=== PATIENT | female | born 1940 | race Caucasian/White ===

== ENCOUNTER 2018-11-06 17:22 | Inpatient (IN) | payer MEDICARE, OTHER ==
[2018-11-06 20:00] LABS: ABS Eosinophils 0.3 10^3/ul (0-0.6); ABS Lymphocytes 2.1 10^3/ul (1.0-4.8); ABS Monocytes 0.4 10^3/ul (0-0.8); ABS Neutrophils 3.6 10^3/ul (1.5-7.7); Eosinophil % 5.4 %; Hematocrit 39 % (35-47); Hemoglobin 12.5 g/dL (12.0-16.0); Lymphocyte % 33.2 %; Mean Corpuscular HGB Conc 32 g/dL (31-36); Mean Corpuscular Hemoglobin 29 pg (27-31); Mean Corpuscular Volume 92 fL (80-97); Mean Platelet Volume 8.3 fL (7.4-10.4); Platelet Count 256 10^3/uL (150-450); Red Cell Distribution Width 15 % (10-15); White Blood Count 6.4 10^3/uL (3.5-10.8)
[2018-11-06 20:08] LABS: INR 1.18 (0.82-1.09)
[2018-11-06] MEDS ORDERED: Morphine 4 MG/ML VIAL (1 ml) 4 MG/ML VIAL IV ONE (20:08)
[2018-11-06 20:09] LABS: Activated Partial Thrombo Time 41.1 seconds (26.0-38.0)
--- NOTE | 2018-11-06 20:10 | ED ---
Back Pain - HPI Summary HPI Summary: he pt is a 78 yr old female was transferred from the [place] ED to [facility] by ambulance accompanied by daughter Susan and son-in-law with chief complaint of lower back pain s/p falling at 0230 on 11/03/2018. She was seen by Nba Steele NP at [facility], and he consulted Dr. Gipson after a CT was taken revealing an L2 fracture. Dr. Gipson recommended transfer to the [facility]. The pt fell while walking her dog outdoors at 0230 on 11/03/18 and has experienced lower back pain since then, which she rates 9/10 in severity. Pt has been using a cane while limping and decided tonight to go to [place] ED for evaluation. Pt has been using hydrocodone that she takes chronically for leg and back pain without relief. Pt states it was thought she might have a pinched nerve causing her back pain, but this was never diagnosed. The pain after falling is much worse that her usual back pain. 4 mg of morphine was administered in the ambulance to alleviate some of the pts pain, but she is currently feeling lower back pain and expresses a desire for medication to alleviate it. Pt also had a brain CT at [facility] which is reported to be negative. Pt denies DUNCAN, chest pain and abdominal pain. She has pain in her bilateral ribs, and her knees. She denies any CP or abd pain. The pt takes hydrocodone, Eliquis. She has Hx of COPD and uses 3 L of O2 when she sleeps at night, HTN, coronary stent, and a brain aneurysm coil. She did not have a stroke or bleed prior to the aneurysm coil. Her PCP is Dr. Cassidy Art. Pt is allergic to cephalexin and tetanus. Pt has redness of her left lower extremity, but daughter states this is chronic. Vital signs while in room: HR 70 bpm, BP 102/68, O2 94%. Home Medications Medication Instructions Recorded Confirmed Type Apixaban [Eliquis] 5 mg PO BID 11/06/18 11/06/18 History Buspirone HCl 10 mg PO BID 11/06/18 11/06/18 History Escitalopram Oxalate [Lexapro 10 10 mg PO DAILY 11/06/18 11/06/18 History mg] Fluticasone-Salmeterol 250-50* 1 puff INH DAILY 11/06/18 11/06/18 History [Advair Diskus 250-50*] Furosemide 20 mg PO DAILY 11/06/18 11/06/18 History Gabapentin 300 mg PO TID 11/06/18 11/06/18 History Hydrocodone/Acetaminophen 1 tab PO Q6H PRN 11/06/18 11/06/18 History [Hydrocodone/Acetaminophen 5-325 mg] Losartan Potassium [Cozaar] 25 mg PO DAILY 11/06/18 11/06/18 History Metoprolol Succinate XL TAB* 25 mg PO DAILY 11/06/18 11/06/18 History [Toprol XL TAB*] Multivit with Calcium,Iron,Min 1 each PO DAILY 11/06/18 11/06/18 History [Multiple Vitamins For Women] Pravastatin Sodium 40 mg PO DAILY 11/06/18 11/06/18 History Ropinirole HCl [Requip Xl] 2 mg pe PO TID 11/06/18 11/06/18 History buPROPion TAB* [Wellbutrin TAB*] 75 mg PO BID 11/06/18 11/06/18 History - History of Current Complaint Chief Complaint: EDFall Stated Complaint: LUMBAR FRACTURE PER EMS Time Seen by Provider: 11/06/18 17:47 Hx Obtained From: Patient, Family/Sports Journalist - Daughter and Son-in-law Onset/Duration: Lasting Days - starting 11/03 229, Still Present, Worse Since - today Onset/Duration: Started Days Ago - starting 11/03 229, Traumatic, Still Present , Worse Since - today Timing: Constant Back Pain Location: Is Discrete @ - Lower back Severity Initially: Severe Severity Currently: Severe Pain Intensity: 9 Pain Scale Used: 0-10 Numeric Alleviating Symptom(s): Other - Morphine. 4mg administered in the ambulance on the way to the [facility]. Associated Signs And Symptoms: Positive: Redness - In the lower left extremity, Flank Pain - bilaterally at ribs, Pain with Weight Bearing, Other - POSITIVE: bilateral knee pain; NEGATIVE: CP. Negative: Abdominal Pain - Allergies/Home Medications Allergies/Adverse Reactions: Allergies Allergy/AdvReac Type Severity Reaction Status Date / Time cephalexin [From Keflex] Allergy Hives Verified 11/06/18 17:30 Home Medications: Home Medications Apixaban [Eliquis] 5 mg PO BID 11/06/18 [History Confirmed 11/06/18] Buspirone HCl 10 mg PO BID 11/06/18 [History Confirmed 11/06/18] Escitalopram Oxalate [Lexapro 10 mg] 10 mg PO DAILY 11/06/18 [History Confirmed 11/06/18] Fluticasone-Salmeterol 250-50* [Advair Diskus 250-50*] 1 puff INH DAILY [History Confirmed 11/06/18] Furosemide 20 mg PO DAILY 11/06/18 [History Confirmed 11/06/18] Gabapentin 300 mg PO TID 11/06/18 [History Confirmed 11/06/18] Hydrocodone/Acetaminophen [Hydrocodone/Acetaminophen 5-325 mg] 1 tab PO Q6H PRN 11/06/18 [History Confirmed 11/06/18] Losartan Potassium [Cozaar] 25 mg PO DAILY 11/06/18 [History Confirmed 11/06/18] Metoprolol Succinate XL TAB* [Toprol XL TAB*] 25 mg PO DAILY 11/06/18 [History Confirmed 11/06/18] Multivit with Calcium,Iron,Min [Multiple Vitamins For Women] 1 each PO DAILY [History Confirmed 11/06/18] Pravastatin Sodium 40 mg PO DAILY 11/06/18 [History Confirmed 11/06/18] Ropinirole HCl [Requip Xl] 2 mg pe PO TID 11/06/18 [History Confirmed 11/06/18] buPROPion TAB* [Wellbutrin TAB*] 75 mg PO BID 11/06/18 [History Confirmed ] PMH/Surg Hx/FS Hx/Imm Hx Cardiovascular History: Reports: Hx Hypertension Respiratory History: Reports: Hx Chronic Obstructive Pulmonary Disease (COPD) - Surgical History Surgical History: None Surgery Procedure, Year, and Place: none Infectious Disease History: No Infectious Disease History: Denies: Traveled Outside the [place] in Last 30 Days - Family History Known Family History: Positive: Hypertension - Social History Alcohol Use: None Hx Substance Use: No Substance Use Type: Reports: None Hx Tobacco Use: No Smoking Status (MU): Former Smoker Review of Systems Negative: Chest Pain Negative: Abdominal Pain Positive: flank pain - bilaterally at ribs Positive: Other - low back pain, bilateral knee pain, pain with weight bearing All Other Systems Reviewed And Are Negative: Yes Physical Exam - Summary Physical Exam Summary: Appearance: Ill-appearing, moderate pain distress, obese Skin: Warm, color reflects adequate perfusion, dry, redness in the lower left extremity, 2cm purple ecchymosis mid abdomen, no ecchymoses anywhere else. Head: Normal Head/Face inspection, atraumatic, no cephalohematoma Eyes: Conjunctiva clear, PERRL, EOMI ENT: Normal inspection Neck: Supple, no nodes, no JVD, no spinal tenderness Respiratory: Lungs clear, normal breath sounds, no respiratory distress Cardio: RRR, No murmur, pulses normal, brisk capillary refill Abdomen: Soft, nontender, no masses Bowel sounds: Present Musculoskeletal: Tenderness in the right lower ribs, No crepitus, No ecchymosis , Tenderness lumbar spine, Strength Intact/ROM intact, no calf tenderness, no edema, Psychological: Normal Neuro: Alert O x 3, muscle tone normal, sensation intact, motor 5/5, no focal deficit Triage Information Reviewed: Yes Vital Signs On Initial Exam: Initial Vitals Temp Pulse Resp BP Pulse Ox 98.3 F 64 15 134/67 97 11/06/18 17:27 11/06/18 17:27 11/06/18 17:27 11/06/18 17:27 11/06/18 17:27 Vital Signs Reviewed: Yes Diagnostics - Vital Signs Vital Signs Temp Pulse Resp BP Pulse Ox 11/06/18 17:27 98.3 F 64 15 134/67 97 - Laboratory Lab Results: Lab Results 11/06/18 11/06/18 Range/Units 19:51 19:51 WBC 6.4 (3.5-10.8) 10^3/uL RBC 4.30 (3.70-4.87) 10^6 /uL Hgb 12.5 (12.0-16.0) g/dL Hct 39 (35-47) % MCV 92 (80-97) fL MCH 29 (27-31) pg MCHC 32 (31-36) g/dL RDW 15 (10-15) % Plt Count 256 (150-450) 10^3/uL MPV 8.3 (7.4-10.4) fL Neut % (Auto) 55.1 % Lymph % (Auto) 33.2 % [place] % (Auto) 5.7 % Eos % (Auto) 5.4 % Baso % (Auto) 0.6 % Absolute Neuts (auto) 3.6 (1.5-7.7) 10^3/ul Absolute Lymphs (auto) 2.1 (1.0-4.8) 10^3/ul Absolute Monos (auto) 0.4 (0-0.8) 10^3/ul Absolute Eos (auto) 0.3 (0-0.6) 10^3/ul Absolute Basos (auto) 0.0 (0-0.2) 10^3/ul Absolute Nucleated RBC 0.0 10^3/ul Nucleated RBC % 0.0 Blood Type Pending Antibody Screen Pending Result Diagrams: 11/06/18 19:51 11/06/18 19:51 Lab Statement: Any lab studies that have been ordered have been reviewed, and results considered in the medical decision making process. - Radiology CXR Radiology Interpretation Completed By: Radiologist Summary of Radiographic Findings: No acute disease. EKG physician has reviewed this report. - EKG 1936 Cardiac Rate: NL - 67 bpm EKG Rhythm: Sinus Rhythm ST Segment: Normal Summary of EKG Findings: An EKG at 1937 reveals nml AV/IV CT, nml QTc, and nml axis. No acute changes. ED MD has reviewed and interpreted this EKG. Re-Evaluation - Re-Evaluation First Eval Re-Evaluation Time: 21:40 Comment: I spoke with the patient concerning admission. She agrees with this plan. Back Pain Course/Dx - Course Course Of Treatment: 78yo F hx chronic low back pain on hydrocodone, hx cardiac stent, HTN, brain aneurysm coil presents with acute superior endplate fracture of L2 after a mechanical fall on 11/03/18 at her home. Pt was limping at home with the pain until she presented today. Pt's initial evaluation and CT showing the L2 fracture were done at [facility] and pt was transferred to [facility] ED after Dr. Gipson reviewed the films and recommended transfer for definitive care. Pt is on Eliquis and also had a CT brain which is reported to be negative , done at [facility]. Pt's neurologic exam is normal. CXR preliminary reading is NAD, and does not show any rib fractures. Pt's EKG is normal. Her initial troponin is zero. Her lab abnormalities include: INR 1.18, APTT 41.1, Creatinine 1.08, Glucose 107. Care was discussed with Dr. Gipson by phone who recommends bedrest overnight, then a brace, and upright films and an MRI tomorrow. Dr. Gipson will consult, and hospitalists will admit medically with acceptance by Dr. Maxwell for admission at 2130. The pt and family are agreeable with this plan. - Diagnoses Differential Diagnosis/HQI/PQRI: Positive: Fracture, Herniated Disc, Strain Provider Diagnoses: Fracture of L2 vertebra - Provider Notifications Discussed Care Of Patient With: Chanda Gipson - neurosurgery Time Discussed With Above Provider: 15:50 Instructed by Provider To: Other - I spoke with Dr. Gipson concerning the patient's case. He will consult for the patient in the ED. He suggests bedrest overnight, then a brace, and upright films and an MRI tomorrow. I spoke with Dr. Maxwell, hospitalist, at 2130, and she accepts patient for admission. Discharge - Sign-Out/Discharge Documenting (check all that apply): Patient Departure - Patient is accepted for admission by Dr. Maxwell. Patient Received Moderate/Deep Sedation with Procedure: No - Discharge Plan Condition: Stable Disposition: ADMITTED TO [facility] - Billing Disposition and Condition Condition: STABLE Disposition: Admitted to [facility] - Attestation Statements Document Initiated by Scribe: Yes Documenting Scribe: Gladis Esquivel Provider For Whom Scribe is Documenting (Include Credential): Dr. Ct Nunez MD Scribe Attestation: Gladis Weaver, scribed for Dr. Ct Nunez MD on 11/07/18 at 0212. Status of Scribe Document: Viewed
[2018-11-06 20:18] LABS: Albumin 4.2 g/dL (3.2-5.2); Albumin/Globulin Ratio 1.3 (1-3); BUN/Creatinine Ratio 14.8 (8-20); Calcium 9.6 mg/dL (8.6-10.3); EGFR African American 59.5 (>60); EGFR Non-African American 49.2 (>60); Globulin 3.2 g/dL (2-4); Potassium 4.4 mmol/L (3.5-5.0); Total Bilirubin 0.4 mg/dL (0.2-1.0); Total Protein 7.4 g/dL (6.4-8.9)
[2018-11-06] MEDS ORDERED: Magnesium Hydroxide LIQ* 30 ML UDC PO PRN (23:07)
[2018-11-06] MEDS ORDERED: Senna TAB PO PRN (23:07)
[2018-11-06] MEDS ORDERED: Albuterol 2.5 MG/3 ML NEB.SOL* (0.083%) INH PRN (23:08)
[2018-11-07] MEDS: oxyCODONE TAB* 5 MG TAB PO PRN ×3 (01:04→19:33)
[2018-11-07] MEDS: ROPINIROLE HCL 2 MG PO SCH ×2 (02:31→04:06)
--- NOTE | 2018-11-07 04:23 | HP ---
CC: Dr. Cassidy Art * HISTORY AND PHYSICAL: DATE OF ADMISSION: 11/06/18 PRIMARY CARE PHYSICIAN: Dr. Cassidy Art. HEALTH CARE PROXY: Amber, her daughter. Phone number [phone]. CODE STATUS: DNR/DNI. CHIEF COMPLAINT: Transfer from [place] for L2 fracture. HISTORY OF PRESENT ILLNESS: Ms. Manzanares is a 78-year-old woman with a past medical history of COPD, on home O2; brain aneurysm, status post coiling in 2018 , now on anticoagulation; coronary artery disease, status post stent; diabetes, now controlled with diet; chronic sciatica; lower extremity neuropathy; lower extremity edema, who was presenting with 3 days of back pain after a fall. She reports that at 2:30 in the morning approximately 3 days prior to presentation, she got up to let her dog outside and she experienced a fall. Her grandson was around at that time and alerted his parents. Because the patient was able to walk after this fall and did not see bruises on herself, she did not immediately seek medical care. The lower back pain has been severe and not progressing over the last few days. However, on day of presentation to [facility], she heard a loud crack in her back and the pain was even more severe, so she presented to the emergency room. For the last several days, she denies new weakness or numbness in her legs. She denies constipation or new bowel or bladder incontinence. She reports neuropathic pain shooting down both of her legs which is chronic over the last several years. At [facility], a CT scan showed a fracture of L2 vertebra, and she was transferred to [facility] for further care. Dr. Gipson was consulted who recommended an MRI of her L-Spine with a CT of her cervical spine and x-ray of her thoracic spine, and to remain on bedrest until able to obtain a TLSO brace. A complete 10-point review of systems was performed with pertinent positives listed in the HPI. PAST MEDICAL HISTORY: 1. COPD, on nighttime oxygen supplement. 2. Chronic sciatica and lower extremity neuropathy. 3. Brain aneurysm 2018, status post coil, now on chronic anticoagulation. 4. Coronary artery disease, status post stenting. 5. Diabetes mellitus type 2, now controlled with diet. 6. Lower extremity edema, denies history of heart failure. 7. Depression and anxiety. 8. Hypertension. MEDICATIONS: Home medications: 1. Apixaban 5 mg twice a day. 2. Furosemide 20 mg daily. 3. Metoprolol 25 mg daily. 4. Losartan 25 mg daily. 5. Bupropion 75 mg twice a day. 6. Buspirone 10 mg twice a day. 7. Escitalopram 10 mg daily. 8. Ropinirole 2 mg 3 times a day as needed for restless leg. 9. Advair 1 puff daily. 10. Pravastatin 40 mg daily. 11. Hydrocodone/acetaminophen 5/325 every 6 hours as needed for pain. 12. Gabapentin 300 mg 3 times a day. ALLERGIES: CEPHALEXIN caused hives. FAMILY HISTORY: The patient's mother and 3 brothers had Alzheimer disease. One of her brothers had kidney disease. SOCIAL HISTORY: The patient lives with her daughter in [place] in the [place] and lives in [place] with her dog in the [place]. 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 She smoked approximately 1 to 2 packs per day for 30 years but quit at age 51. Denies history of current use of alcohol or other drugs. Her health care proxy is her daughter Amber. PHYSICAL EXAMINATION GENERAL: She is a comfortable appearing woman, in no acute distress. Alert and interactive, responds to questions appropriately. VITAL SIGNS: Afebrile, blood pressure 115/66, heart rate 68, respiratory rate 19, oxygen saturation 92% on room air. HEENT: With moist mucous membranes. OP clear. NECK: No JVD. LUNGS: Clear to auscultation bilaterally. HEART: Regular rate and rhythm. No murmurs, gallops, or rubs. ABDOMEN: Soft, nontender, nondistended. BACK: Without ecchymoses, tenderness to palpation over L-Spine. EXTREMITIES: Lower extremities with left leg warmer than right leg, with left erickson with circumferential mild erythema. The patient reports this is chronic. DP pulses 2+ on the left and 1+ on the right. No lower extremity edema. NEUROLOGIC: A and O x3. CN II through XII intact. Hip flexion approximately 4 /5 bilaterally. Ankle flexion and extension 5/5 bilaterally. The patient reports decreased sensation throughout left lower extremity when compared to right which is at her baseline. LABORATORY DATA: CBC unremarkable. INR 1.18. Creatinine 1.08 without known baseline. Hemoglobin A1c 6.1. LFTs unremarkable. Imaging studies from [place] are pending. EKG: Normal sinus rhythm at 67. ASSESSMENT AND PLAN: Ms. Manzanares is a 78-year-old woman with hypertension; chronic obstructive pulmonary disease, on home O2; chronic sciatica and lower extremity neuropathy; brain aneurysm, status post coiling, on chronic anticoagulation; coronary artery disease with stents; depression and anxiety, who is presenting several days after a fall at home with imaging at outside hospital concerning for L2 fracture. 1. Lumbar vertebra fracture. The patient is to remain on bedrest pending lumbar spine MRI. Per neurosurgery request, she will also receive a CT of her cervical spine and x-ray of her thoracic spine. She should have a TLSO brace obtained tomorrow and afterwards should undergo upright films while wearing the brace, and she will need physical therapy evaluation. She can have Tylenol for mild pain and oxycodone 5 mg every 6 hours as needed for [id number] pain. Bowel regimen has also been ordered. 2. Brain aneurysm, status post coil. The patient reports she now chronically takes Apixaban 5 mg twice a day. Denies history of clot. Will continue this medication. 3. Chronic obstructive pulmonary disease. Continue home Dulera inhaler daily with albuterol as needed for shortness of breath. She will be on oxygen as needed to maintain SaO2 88% to 92%. 4. Depression and anxiety. Continue home bupropion 75 mg twice a day, buspirone 10 mg twice a day, and escitalopram 10 mg daily. 5. Lower extremity edema. Continue home furosemide 20 mg daily. 6. Chronic lower extremity neuropathic pain. Continue home gabapentin 300 mg 3 times a day. Otherwise, pain control as above for lumbar fracture. 7. Coronary artery disease. Continue home atorvastatin 10 mg daily. Continue metoprolol 25 mg daily. 8. Restless leg syndrome. Continue Ropinirole. 9. Hypertension. Continue home losartan 25 mg daily. 10. DVT prophylaxis: The patient is on therapeutic anticoagulation with Apixaban. 11. Diet: We will keep the patient n.p.o. for imaging, but should have carb- controlled diet when able to eat. 12. Code status: The patient wishes to be DNR. TIME SPENT: Approximately 60 minutes was spent on the admission of this patient , more than half of which was spent at the bedside for interview and exam. [id number]/[facility] #: [id number] [place]
[2018-11-07] MEDS: Metoprolol Succinate XL TAB* 25 MG PO SCH (07:52)
[2018-11-07] MEDS: Escitalopram * 10 MG TAB PO SCH (07:53)
[2018-11-07] MEDS: Gabapentin CAP(*) 300 MG PO SCH ×3 (07:53→21:27)
[2018-11-07] MEDS: Furosemide TAB* 20 MG PO SCH (07:53)
[2018-11-07] MEDS: busPIRone TAB* 10 MG PO SCH ×2 (07:53→21:28)
[2018-11-07] MEDS: buPROPion TAB* 75 MG PO SCH ×2 (07:53→21:28)
[2018-11-07] MEDS: Atorvastatin* 10 MG TAB PO SCH (07:53)
[2018-11-07] MEDS: Apixaban* 5 MG TAB PO SCH ×2 (07:53→21:28)
[2018-11-07] MEDS: Losartan TAB* 25 MG PO SCH (07:53)
[2018-11-07] MEDS: MULTIPLE VITAMINS FOR WOMEN PO SCH (07:54)
[2018-11-07] MEDS: rOPINIRole TAB* 1 MG PO SCH ×3 (07:54→21:29)
[2018-11-07] MEDS: Mometasone/Formoter 200/5 MDI INH SCH (08:37)
--- NOTE | 2018-11-07 12:18 | CONS ---
CONSULTATION REPORT: DATE OF CONSULT: 11/07/18 HISTORY OF PRESENT ILLNESS: Ms. Manzanares is a 78-year-old female with complaint of acute low back pain x4 days. The patient was walking her dog and fell, and landed on her back, and has had increased pain since. The patient also reports that yesterday she was at home in her bed and tried to turn over to her side and felt a popping sensation with increased pain, which prompted her to come into the ED for evaluation. The patient was initially seen at [facility] and was diagnosed with an L2 compression fracture at that time. Dr. Gipson of the neurosurgery team was consulted and recommended the patient be followed up here at [facility] for evaluation. She has since then completed a cervical spine and thoracic spine series, which shows no acute injury. Currently, the patient complains of low back pain with bilateral radicular pain. The radicular pain is a chronic issue and has been unchanged since her fall. Presently, she denies any issues with loss of control of bladder or bowel. Pain is increased with standing and walking. PAST MEDICAL HISTORY: 1. High cholesterol. 2. Hypertension. MEDICATIONS: 1. Pravastatin sodium 40 mg p.o. daily. 2. Multivitamin p.o. daily. 3. Advair Diskus 1 puff daily. 4. ReQuip 2 mg p.o. t.i.d. 5. Lexapro 10 mg daily. 6. Buspirone 10 mg p.o. daily. 7. Wellbutrin 75 mg p.o. b.i.d. 8. Cozaar 25 mg daily. 9. Eliquis 5 mg p.o. b.i.d. 10. Metoprolol 25 mg p.o. daily. 11. Gabapentin 30 mg p.o. t.i.d. 12. Furosemide 20 mg p.o. daily. 13. Hydrocodone 5/325 one tab p.o. q.6 p.r.n. daily. SOCIAL HISTORY: Denies tobacco use, denies alcohol, denies drug use. PHYSICAL EXAMINATION: Vital Signs: Temperature is 97.9, pulse rate 66, respiration 16, O2 saturation 95% on room air, blood pressure 122/61. The patient is sitting up in bed, comfortable with the bed elevated. Mood is pleasant, no acute distress noted. Neuro: The patient's GCS is 15. Alert and oriented x3. Cranial nerves II through XII grossly intact. Negative pronator drift. Upper extremity motor strength is 5/5+ bilaterally throughout. Lower extremity motor strength 5/5+ throughout. Sensation is intact throughout. Negative Babinski's. Negative clonus. ASSESSMENT: A 78-year-old female with acute low back pain, status post mechanical fall from walking dog x4 days, has possible L2 compression fracture, was diagnosed at [facility] and transferred over to [facility] as a recommendation by Dr. Gipson from neurosurgery. The patient is neurologically intact with no focal deficit. Has completed CTs of the cervical and thoracic spine. PLAN/RECOMMENDATIONS: Need to get an MRI of the lumbar spine. Get the patient fitted for TLSO brace, have the brace at bedside. I spoke with the patient; she is a little apprehensive about being braced so that it may be a little bit more constrictive. We spoke and discussed her medical history. She is on anticoagulants and has significant medical history which she was unable to give at bedside. Just looking through her chart, I have been able to see that she is on anticoagulants. I explained to the patient that surgery might be an option, but may require several medical clearances for her to do that and that conservative therapy would include wearing a brace for possibly 10 to 12 weeks with serial radial films to make sure that the fracture stays stable and she does not experience any kyphosis. At this time, we will follow with the patient after she completes her MRI study of her lumbar spine and continue to talk about options. Hopefully, her daughter will be at the bedside so we can possibly weigh in on the situation. I will also discuss this case with Dr. Gipson. [id number]/[facility] #: [id number] [place]
--- NOTE | 2018-11-07 16:02 | PN ---
Subjective Date of Service: 11/07/18 Interval History: Patient seen and examined. Daughter at bedside. Patient states back pain is severe, so she is trying not to move. Denies any fever or chills, no urinary complaints, no SOB or chest pains. No focal weakness reported. Objective Active Medications: Acetaminophen (Tylenol Tab*) 975 mg PO Q8H PRN PRN Reason: fever or mild pain Albuterol (Ventolin 2.5 Mg/3 Ml Neb.Ana*) 2.5 mg INH Q6H PRN PRN Reason: SOB/WHEEZING Apixaban (Eliquis*) 5 mg PO BID [facility] Last Admin: 11/07/18 07:53 Dose: 5 mg Atorvastatin Calcium (Lipitor*) 10 mg PO DAILY [facility] Last Admin: 11/07/18 07:53 Dose: 10 mg Bupropion HCl (Wellbutrin Tab*) 75 mg PO BID [facility] Last Admin: 11/07/18 07:53 Dose: 75 mg Buspirone HCl (Buspar Tab*) 10 mg PO BID [facility] Last Admin: 11/07/18 07:53 Dose: 10 mg Escitalopram Oxalate (Lexapro *) 10 mg PO DAILY [facility] Last Admin: 11/07/18 07:53 Dose: 10 mg Furosemide (Lasix Tab*) 20 mg PO DAILY [facility] Last Admin: 11/07/18 07:53 Dose: 20 mg Gabapentin (Neurontin Cap(*)) 300 mg PO TID [facility] Last Admin: 11/07/18 13:13 Dose: 300 mg Losartan Potassium (Cozaar Tab*) 25 mg PO DAILY [facility] Last Admin: 11/07/18 07:53 Dose: 25 mg Magnesium Hydroxide (Milk Of Magnesia Liq*) 30 ml PO Q6H PRN PRN Reason: CONSTIPATION Metoprolol Succinate (Toprol Xl Tab*) 25 mg PO DAILY [facility] Last Admin: 11/07/18 07:52 Dose: 25 mg Mometasone Furoate/Formoterol Fumar (Dulera 200/5 Mdi*) 2 puff INH DAILY [facility] Last Admin: 11/07/18 08:37 Dose: 2 puff [Multiple Vitamins (For Women]) 1 each PO DAILY [facility] Last Admin: 11/07/18 07:54 Dose: Not Given Oxycodone HCl (Roxycodone Tab*) 5 mg PO Q6H PRN PRN Reason: moderate or severe pain Last Admin: 11/07/18 13:15 Dose: 5 mg Ropinirole HCl (Requip Tab*) 2 mg PO TID [facility] Last Admin: 11/07/18 13:13 Dose: 2 mg Senna (Senokot Tab*) 1 tab PO BEDTIME PRN PRN Reason: if no BM during day Vital Signs - 8 hr 11/07/18 11/07/18 11/07/18 07:53 08:00 08:38 Temperature Pulse Rate 81 Respiratory 16 16 18 Rate Blood Pressure (mmHg) O2 Sat by Pulse 97 Oximetry 11/07/18 11/07/18 11/07/18 09:33 12:24 13:13 Temperature 98.1 F Pulse Rate 74 Respiratory 16 18 18 Rate Blood Pressure 143/60 (mmHg) O2 Sat by Pulse 95 Oximetry 11/07/18 11/07/18 11/07/18 13:15 14:50 14:51 Temperature Pulse Rate Respiratory 16 16 16 Rate Blood Pressure (mmHg) O2 Sat by Pulse Oximetry Oxygen Devices in Use Now: None Appearance: alert, NAD Eyes: No Scleral Icterus, PERRLA Ears/Nose/Mouth/Throat: NL Teeth, Lips, Gums Neck: NL Appearance and Movements; NL JVP, Trachea Midline Respiratory: Symmetrical Chest Expansion and Respiratory Effort, Clear to Auscultation Cardiovascular: NL Sounds; No Murmurs; No JVD, RRR, No Edema Abdominal: NL Sounds; No Tenderness; No Distention Extremities: No Edema, No Clubbing, Cyanosis, - - tender lumbar region Skin: No Rash or Ulcers Neurological: Alert and Oriented x 3, NL Sensation Nutrition: Taking PO's Result Diagrams: 11/06/18 19:51 11/06/18 19:51 Additional Lab and Data: Lab Results 11/06/18 11/06/18 Range/Units 19:51 19:51 WBC 6.4 (3.5-10.8) 10^3/uL RBC 4.30 (3.70-4.87) 10^6 /uL Hgb 12.5 (12.0-16.0) g/dL Hct 39 (35-47) % MCV 92 (80-97) fL MCH 29 (27-31) pg MCHC 32 (31-36) g/dL RDW 15 (10-15) % Plt Count 256 (150-450) 10^3/uL MPV 8.3 (7.4-10.4) fL Neut % (Auto) 55.1 % Lymph % (Auto) 33.2 % [place] % (Auto) 5.7 % Eos % (Auto) 5.4 % Baso % (Auto) 0.6 % Absolute Neuts (auto) 3.6 (1.5-7.7) 10^3/ul Absolute Lymphs (auto) 2.1 (1.0-4.8) 10^3/ul Absolute Monos (auto) 0.4 (0-0.8) 10^3/ul Absolute Eos (auto) 0.3 (0-0.6) 10^3/ul Absolute Basos (auto) 0.0 (0-0.2) 10^3/ul Absolute Nucleated RBC 0.0 10^3/ul Nucleated RBC % 0.0 Blood Type Pending Antibody Screen Pending Assess/Plan/Problems-Billing Assessment: This is a 78 year old female with hx of degenerative spine disease and frequent falls that presents to ED with fall and back pain. - Patient Problems (1) Intractable low back pain Code(s): M54.5 - LOW BACK PAIN SNOMED Code(s): 63871343730636277 Comment: - CT with L2 fx, pending NS consult and MRI - Before MRI can be completed, records from [facility] regarding aneurysm coil have to be reviewed to see if it is MRI compatible - TLSO brace ordered - PT/OT, pain control (2) COPD (chronic obstructive pulmonary disease) Code(s): J44.9 - CHRONIC OBSTRUCTIVE PULMONARY DISEASE, UNSPECIFIED SNOMED Code(s): 79560793 Comment: - Not in exacerbation, continue dulera (3) Brain aneurysm Comment: - With coil procedure, stable, pending records for MRI compatibility - conitnue apixiban (4) Diabetes Code(s): E11.9 - TYPE 2 DIABETES MELLITUS WITHOUT COMPLICATIONS SNOMED Code(s) : 55956859 Comment: - A1c 6.1, stable, no need for coverage (5) Depression Code(s): F32.9 - MAJOR DEPRESSIVE DISORDER, SINGLE EPISODE, UNSPECIFIED SNOMED Code(s): 72953228 Comment: - continue home antidpressents (6) Edema Code(s): R60.9 - EDEMA, UNSPECIFIED SNOMED Code(s): 528060641 Comment: - Continue daily lasix (7) DVT prophylaxis Code(s): Z29.9 - ENCOUNTER FOR PROPHYLACTIC MEASURES, UNSPECIFIED SNOMED Code( s): 869343327 Comment: - on apixiban (8) Full code status Code(s): Z78.9 - OTHER SPECIFIED HEALTH STATUS SNOMED Code(s): 106612120 Status and Disposition: Inpatient, will likely require STR
--- NOTE | 2018-11-07 23:25 | CONS ---
CONSULTATION REPORT: DATE OF OPERATION: 11/06/18 DATE OF CONSULTATION: 11/07/18 HISTORY OF PRESENT ILLNESS: The patient is a very pleasant 78-year-old female with history of COPD, on home oxygen; brain aneurysm, status post coiling in 2018 in [place], who as you know has been on anticoagulation; coronary artery disease, status post stent placement; diabetes; chronic sciatica; lower extremity neuropathy; lower extremity edema, who presented 3 days after a fall in [facility]. At that time, she was diagnosed with L1 superior endplate fracture and was transferred to [facility]. The patient had a CT scan of the brain that did not reveal any evidence of acute injury. Requested to see the patient by emergency room team because of the CT scan findings: The patient denies loss of consciousness and she remembers how the episodes of fall happened. She did not lose her consciousness. She denies any neck pain, but she does have a fair amount of back pain. She denies any weakness, numbness, or tingling of her extremities, and she reports that she has difficulty with her ambulation because of the pain. The patient denies any urinary or GI incontinence, but she does have a baseline urinary stress incontinence. Her ___ __ sensation is intact. The patient was currently admitted by the hospitalist team and was scheduled for an MRI of her lumbar spine and was fitted with a TLSO brace. PAST MEDICAL HISTORY: 1. COPD. 2. Sciatica. 3. Lower extremity neuropathy. 4. Brain aneurysm. 5. Status post coiling, on chronic anticoagulation. 6. Coronary artery disease. 7. Diabetes. 8. Lower extremity edema. 9. Depression. 10. Anxiety. 11. Hypertension. MEDICATIONS: The patient was on: 1. Apixaban. 2. Furosemide. 3. Metoprolol. 4. Losartan. 5. Bupropion. 6. Buspirone. 7. Escitalopram. 8. Ropinirole. 9. Advair. 10. Pravastatin. 11. Hydrocodone/acetaminophen. 12. Gabapentin. ALLERGIES: CEPHALEXIN. FAMILY HISTORY: Alzheimer's disease. SOCIAL HISTORY: Tobacco negative. Former smoker. Alcohol negative. Recreational drug use negative. The patient is a . She is retired. She lives in the [place] in [place] with her daughter and at times [place] in the [place]. PHYSICAL EXAMINATION: The patient is not in acute distress. She is awake, alert, and oriented x3. Her pupils are equal and reactive. Cranial nerves II through XII are grossly intact. Motor 4-5/5 in all extremities. Sensory grossly intact to light touch. Deep tendon reflexes +1 bilaterally. No clonus. No Babinski. Ewlls's negative. Straight leg test negative in the supine position. The patient has no tenderness to palpation of the thoracic or lumbar spine. She has free range of motion of the cervical spine. DIAGNOSTIC STUDIES/LAB DATA: The patient had a CT scan of the lumbar spine on 11/06/18 revealing a superior endplate fracture of L1 with severe degenerative disk disease, no evidence of posterior ligamentous complex injury. Good alignment of the lumbar spine. No retropulsion. The patient had a CT scan of the cervical spine that did not reveal any acute cervical spine injury such as fractures or subluxation. There are postoperative changes from anterior cervical discectomy and fusion at C5-6 and C6-7. The patient had a CT scan of the thoracic spine that reveals again superior endplate fracture of L1 with chronic-appearing mild wedge deformity of T4 which is described several in my review. There is no retropulsion. There is no canal compromise. ASSESSMENT: The patient is a very pleasant 78-year-old female with history of hypertension; chronic obstructive pulmonary disease, on home oxygen; chronic sciatica; lower extremity neuropathy; brain aneurysm, status post coiling, on chronic anticoagulation; coronary artery disease with stent; depression; anxiety ; who had suffered a fall several days ago with CT scan findings consistent with L1 superior endplate fracture. PLAN: The patient at this point has done extremely well. She has been fitted with a brace but she has not been able to ambulate yet. MRI of the lumbar spine is pending as the findings may represent chronic fracture. The patient's documents from [facility] in [place] are pending. In order to confirm that coiling is MRI compatible, we will recommend upright x-ray or standing x- ray with a TLSO brace pend the treatment conservatively. If the alignment is maintained in the upright position then, the patient can follow up in our office in approximately 2 weeks with a new x-ray of the thoracolumbar spine. Thank you for allowing us to participate in the care of this patient. Please do not hesitate to contact our office in case you have any further questions or concerns regarding the care of this patient. The patient should be wearing a TLSO brace when out of bed. [id number]/[facility] #: [id number] [facility]
[2018-11-08] MEDS: Atorvastatin* 10 MG TAB PO SCH (07:24)
[2018-11-08] MEDS: Escitalopram * 10 MG TAB PO SCH (07:24)
[2018-11-08] MEDS: rOPINIRole TAB* 1 MG PO SCH ×3 (07:24→20:56)
[2018-11-08] MEDS: buPROPion TAB* 75 MG PO SCH ×2 (07:24→20:55)
[2018-11-08] MEDS: busPIRone TAB* 10 MG PO SCH ×2 (07:24→20:55)
[2018-11-08] MEDS: Losartan TAB* 25 MG PO SCH (07:24)
[2018-11-08] MEDS: Furosemide TAB* 20 MG PO SCH (07:25)
[2018-11-08] MEDS: oxyCODONE TAB* 5 MG TAB PO PRN ×3 (07:26→16:25)
[2018-11-08] MEDS: Gabapentin CAP(*) 300 MG PO SCH ×3 (07:26→20:56)
[2018-11-08] MEDS: Apixaban* 5 MG TAB PO SCH ×2 (07:27→20:56)
[2018-11-08] MEDS: Metoprolol Succinate XL TAB* 25 MG PO SCH (07:29)
[2018-11-08] MEDS: MULTIPLE VITAMINS FOR WOMEN PO SCH (07:29)
[2018-11-08] MEDS: Mometasone/Formoter 200/5 MDI INH SCH (07:30)
[2018-11-08] MEDS: Cyclobenzaprine TAB* 10 MG PO PRN ×2 (09:56→20:55)
--- NOTE | 2018-11-08 17:26 | PN ---
Subjective Date of Service: 11/08/18 Interval History: Patient seen and examined. Increased pain today 01/03 with no relief from 5mg oxycodone. Daughter at bedside, Patient tearful and upset that she feels like she can't move, also upset about having to call nurses to help her urinate on bedpan. Denies chest pain, no SOB, no n/v. Objective Active Medications: Acetaminophen (Tylenol Tab*) 975 mg PO Q8H PRN PRN Reason: fever or mild pain Albuterol (Ventolin 2.5 Mg/3 Ml Neb.Ana*) 2.5 mg INH Q6H PRN PRN Reason: SOB/WHEEZING Apixaban (Eliquis*) 5 mg PO BID [facility] Last Admin: 11/08/18 07:27 Dose: 5 mg Atorvastatin Calcium (Lipitor*) 10 mg PO DAILY [facility] Last Admin: 11/08/18 07:24 Dose: 10 mg Bupropion HCl (Wellbutrin Tab*) 75 mg PO BID [facility] Last Admin: 11/08/18 07:24 Dose: 75 mg Buspirone HCl (Buspar Tab*) 10 mg PO BID [facility] Last Admin: 11/08/18 07:24 Dose: 10 mg Cyclobenzaprine HCl (Flexeril Tab*) 10 mg PO TID PRN PRN Reason: back spasm Last Admin: 11/08/18 09:56 Dose: 10 mg Escitalopram Oxalate (Lexapro *) 10 mg PO DAILY [facility] Last Admin: 11/08/18 07:24 Dose: 10 mg Furosemide (Lasix Tab*) 20 mg PO DAILY [facility] Last Admin: 11/08/18 07:25 Dose: 20 mg Gabapentin (Neurontin Cap(*)) 300 mg PO TID [facility] Last Admin: 11/08/18 14:06 Dose: 300 mg Losartan Potassium (Cozaar Tab*) 25 mg PO DAILY [facility] Last Admin: 11/08/18 07:24 Dose: 25 mg Magnesium Hydroxide (Milk Of Magnesia Liq*) 30 ml PO Q6H PRN PRN Reason: CONSTIPATION Metoprolol Succinate (Toprol Xl Tab*) 25 mg PO DAILY [facility] Last Admin: 11/08/18 07:29 Dose: 25 mg Mometasone Furoate/Formoterol Fumar (Dulera 200/5 Mdi*) 2 puff INH DAILY [facility] Last Admin: 11/08/18 07:30 Dose: Not Given [Multiple Vitamins (For Women]) 1 each PO DAILY [facility] Last Admin: 11/08/18 07:29 Dose: Not Given Oxycodone HCl (Roxycodone Tab*) 10 mg PO Q4H PRN PRN Reason: SEVERE PAIN Last Admin: 11/08/18 16:25 Dose: 10 mg Ropinirole HCl (Requip Tab*) 2 mg PO TID [facility] Last Admin: 11/08/18 14:05 Dose: 2 mg Senna (Senokot Tab*) 1 tab PO BEDTIME PRN PRN Reason: if no BM during day Vital Signs - 8 hr 11/08/18 11/08/18 11/08/18 09:55 09:56 09:59 Temperature Pulse Rate Respiratory 16 16 16 Rate Blood Pressure (mmHg) O2 Sat by Pulse Oximetry 11/08/18 11/08/18 11/08/18 10:02 11:15 12:05 Temperature 98.2 F Pulse Rate 65 Respiratory 16 16 16 Rate Blood Pressure 101/47 (mmHg) O2 Sat by Pulse 94 Oximetry 11/08/18 11/08/18 14:06 16:25 Temperature Pulse Rate Respiratory 16 18 Rate Blood Pressure (mmHg) O2 Sat by Pulse Oximetry Oxygen Devices in Use Now: Nasal Cannula Appearance: alert, tearful Eyes: No Scleral Icterus, PERRLA Ears/Nose/Mouth/Throat: NL Teeth, Lips, Gums, Mucous Membranes Moist Neck: NL Appearance and Movements; NL JVP, Trachea Midline Respiratory: Symmetrical Chest Expansion and Respiratory Effort, Clear to Auscultation Cardiovascular: NL Sounds; No Murmurs; No JVD, RRR Abdominal: NL Sounds; No Tenderness; No Distention Extremities: No Clubbing, Cyanosis - trace ankle edema Skin: No Rash or Ulcers Neurological: Alert and Oriented x 3, NL Sensation, NL Muscle Strength and Tone , - - pain over low back to palpation Nutrition: Taking PO's Result Diagrams: 11/06/18 19:51 11/06/18 19:51 Additional Lab and Data: Lab Results 11/06/18 11/06/18 Range/Units 19:51 19:51 WBC 6.4 (3.5-10.8) 10^3/uL RBC 4.30 (3.70-4.87) 10^6 /uL Hgb 12.5 (12.0-16.0) g/dL Hct 39 (35-47) % MCV 92 (80-97) fL MCH 29 (27-31) pg MCHC 32 (31-36) g/dL RDW 15 (10-15) % Plt Count 256 (150-450) 10^3/uL MPV 8.3 (7.4-10.4) fL Neut % (Auto) 55.1 % Lymph % (Auto) 33.2 % [place] % (Auto) 5.7 % Eos % (Auto) 5.4 % Baso % (Auto) 0.6 % Absolute Neuts (auto) 3.6 (1.5-7.7) 10^3/ul Absolute Lymphs (auto) 2.1 (1.0-4.8) 10^3/ul Absolute Monos (auto) 0.4 (0-0.8) 10^3/ul Absolute Eos (auto) 0.3 (0-0.6) 10^3/ul Absolute Basos (auto) 0.0 (0-0.2) 10^3/ul Absolute Nucleated RBC 0.0 10^3/ul Nucleated RBC % 0.0 Blood Type Pending Antibody Screen Pending Assess/Plan/Problems-Billing Assessment: This is a 78 year old female with hx of degenerative spine disease and frequent falls that presents to ED with fall and back pain. - Patient Problems (1) Intractable low back pain Code(s): M54.5 - LOW BACK PAIN SNOMED Code(s): 91432579106954058 Comment: - CT with L2 fx, NS following, pending MRI (aneurysm clip is compatible), upright xrays with brace tomorrow? Will confirm with neurosurgery - TLSO brace fitted - PT/OT, pain control, increased oxycodone, added flexeril (2) COPD (chronic obstructive pulmonary disease) Code(s): J44.9 - CHRONIC OBSTRUCTIVE PULMONARY DISEASE, UNSPECIFIED SNOMED Code(s): 20465852 Comment: - Not in exacerbation, continue dulera (3) Brain aneurysm Comment: - With coil procedure, stable - conitnue apixiban (4) Diabetes Code(s): E11.9 - TYPE 2 DIABETES MELLITUS WITHOUT COMPLICATIONS SNOMED Code(s) : 71699705 Comment: - A1c 6.1, stable, no need for coverage (5) Depression Code(s): F32.9 - MAJOR DEPRESSIVE DISORDER, SINGLE EPISODE, UNSPECIFIED SNOMED Code(s): 18180733 Comment: - continue home antidpressents (6) Edema Code(s): R60.9 - EDEMA, UNSPECIFIED SNOMED Code(s): 034416196 Comment: - Continue daily lasix (7) DVT prophylaxis Code(s): Z29.9 - ENCOUNTER FOR PROPHYLACTIC MEASURES, UNSPECIFIED SNOMED Code( s): 724317839 Comment: - on apixiban (8) Full code status Code(s): Z78.9 - OTHER SPECIFIED HEALTH STATUS SNOMED Code(s): 947529766 Status and Disposition: Inpatient, will likely require STR, appreciate recs from CM
--- NOTE | 2018-11-08 18:05 | PN ---
Progress Note - Progress Note Date of Service: 11/08/18 Note: Patient completed RI show acute L1 compression fracture through the superior endplate. Official report is not up at this time. Neurosurgery team spoke with the family at bedside, while patient was sleeping this evening and they report that patient has also complained of right hip pain since fall. They are worried about possible acute injury of right hip. Patient has TLSO brace at bed side. Patient needs to complete standing AP lateral x rays of lumbar spine in brace. Neurosurgery will follow up official MRI read, additional film studies.
[2018-11-09] MEDS: oxyCODONE TAB* 5 MG TAB PO PRN ×2 (04:49→08:45)
[2018-11-09] MEDS: Mometasone/Formoter 200/5 MDI INH SCH (07:41)
[2018-11-09] MEDS: Apixaban* 5 MG TAB PO SCH ×2 (09:57→22:45)
[2018-11-09] MEDS: buPROPion TAB* 75 MG PO SCH ×2 (09:57→22:45)
[2018-11-09] MEDS: Atorvastatin* 10 MG TAB PO SCH (09:57)
[2018-11-09] MEDS: busPIRone TAB* 10 MG PO SCH ×2 (09:57→22:45)
[2018-11-09] MEDS: Furosemide TAB* 20 MG PO SCH (09:58)
[2018-11-09] MEDS: Gabapentin CAP(*) 300 MG PO SCH ×3 (09:58→22:44)
[2018-11-09] MEDS: Escitalopram * 10 MG TAB PO SCH (09:58)
[2018-11-09] MEDS: Losartan TAB* 25 MG PO SCH (09:59)
[2018-11-09] MEDS: Metoprolol Succinate XL TAB* 25 MG PO SCH (09:59)
[2018-11-09] MEDS: MULTIPLE VITAMINS FOR WOMEN PO SCH (09:59)
[2018-11-09] MEDS: rOPINIRole TAB* 1 MG PO SCH ×3 (09:59→22:45)
--- NOTE | 2018-11-09 18:01 | PN ---
Subjective Date of Service: 11/09/18 Interval History: Patient seen and examined. Sleepy, family at bedside. Per RN, lost her bottom denture last night. Pain under better control, denies SOB, no chest pain. No headaches, no numbness. Some radicular and hip pain. Objective Active Medications: Acetaminophen (Tylenol Tab*) 975 mg PO Q8H PRN PRN Reason: fever or mild pain Albuterol (Ventolin 2.5 Mg/3 Ml Neb.Ana*) 2.5 mg INH Q6H PRN PRN Reason: SOB/WHEEZING Apixaban (Eliquis*) 5 mg PO BID [facility] Last Admin: 11/09/18 09:57 Dose: 5 mg Atorvastatin Calcium (Lipitor*) 10 mg PO DAILY [facility] Last Admin: 11/09/18 09:57 Dose: 10 mg Bupropion HCl (Wellbutrin Tab*) 75 mg PO BID [facility] Last Admin: 11/09/18 09:57 Dose: 75 mg Buspirone HCl (Buspar Tab*) 10 mg PO BID [facility] Last Admin: 11/09/18 09:57 Dose: 10 mg Cyclobenzaprine HCl (Flexeril Tab*) 10 mg PO TID PRN PRN Reason: back spasm Last Admin: 11/08/18 20:55 Dose: 10 mg Escitalopram Oxalate (Lexapro *) 10 mg PO DAILY [facility] Last Admin: 11/09/18 09:58 Dose: 10 mg Furosemide (Lasix Tab*) 20 mg PO DAILY [facility] Last Admin: 11/09/18 09:58 Dose: 20 mg Gabapentin (Neurontin Cap(*)) 300 mg PO TID [facility] Last Admin: 11/09/18 16:27 Dose: 300 mg Losartan Potassium (Cozaar Tab*) 25 mg PO DAILY [facility] Last Admin: 11/09/18 09:59 Dose: 25 mg Magnesium Hydroxide (Milk Of Magnesia Liq*) 30 ml PO Q6H PRN PRN Reason: CONSTIPATION Metoprolol Succinate (Toprol Xl Tab*) 25 mg PO DAILY [facility] Last Admin: 11/09/18 09:59 Dose: 25 mg Mometasone Furoate/Formoterol Fumar (Dulera 200/5 Mdi*) 2 puff INH DAILY [facility] Last Admin: 11/09/18 07:41 Dose: Not Given [Multiple Vitamins (For Women]) 1 each PO DAILY [facility] Last Admin: 11/09/18 09:59 Dose: Not Given Oxycodone HCl (Roxycodone Tab*) 10 mg PO Q4H PRN PRN Reason: SEVERE PAIN Last Admin: 11/09/18 08:45 Dose: 10 mg Ropinirole HCl (Requip Tab*) 2 mg PO TID [facility] Last Admin: 11/09/18 16:29 Dose: 2 mg Senna (Senokot Tab*) 1 tab PO BEDTIME PRN PRN Reason: if no BM during day Vital Signs - 8 hr 11/09/18 11/09/18 11/09/18 09:58 12:00 16:27 Respiratory 20 14 16 Rate Oxygen Devices in Use Now: Nasal Cannula Appearance: alert, NAD Eyes: No Scleral Icterus, PERRLA Ears/Nose/Mouth/Throat: Mucous Membranes Moist, - - bottom denture missing Neck: NL Appearance and Movements; NL JVP Respiratory: Symmetrical Chest Expansion and Respiratory Effort, Clear to Auscultation Cardiovascular: NL Sounds; No Murmurs; No JVD, RRR, No Edema Abdominal: NL Sounds; No Tenderness; No Distention Extremities: No Edema, No Clubbing, Cyanosis Skin: No Rash or Ulcers Neurological: Alert and Oriented x 3, NL Sensation Nutrition: Taking PO's Result Diagrams: 11/06/18 19:51 11/06/18 19:51 Additional Lab and Data: Lab Results 11/06/18 11/06/18 Range/Units 19:51 19:51 WBC 6.4 (3.5-10.8) 10^3/uL RBC 4.30 (3.70-4.87) 10^6 /uL Hgb 12.5 (12.0-16.0) g/dL Hct 39 (35-47) % MCV 92 (80-97) fL MCH 29 (27-31) pg MCHC 32 (31-36) g/dL RDW 15 (10-15) % Plt Count 256 (150-450) 10^3/uL MPV 8.3 (7.4-10.4) fL Neut % (Auto) 55.1 % Lymph % (Auto) 33.2 % [place] % (Auto) 5.7 % Eos % (Auto) 5.4 % Baso % (Auto) 0.6 % Absolute Neuts (auto) 3.6 (1.5-7.7) 10^3/ul Absolute Lymphs (auto) 2.1 (1.0-4.8) 10^3/ul Absolute Monos (auto) 0.4 (0-0.8) 10^3/ul Absolute Eos (auto) 0.3 (0-0.6) 10^3/ul Absolute Basos (auto) 0.0 (0-0.2) 10^3/ul Absolute Nucleated RBC 0.0 10^3/ul Nucleated RBC % 0.0 Blood Type Pending Antibody Screen Pending Diagnostic Imaging: Patient Name: MARIETTA SALGADO Medical Record#: [id number] Ordering Physician: Yamile Maxwell MD Acct.#: [id number] : 1940 Age: 78 Sex: F Location: [address] [place] [address] Exam Date: 11/08/182305 ADM Status: ADM IN Order Information: MRI LUMBAR SPINE W/O Accession Number: [id number] CPT: 15250 EXAM: MR Lumbar Spine Without Contrast. EXAM DATE/TIME: 11/08/2018 4:04 PM CLINICAL HISTORY: 78 years old, female; Injury or trauma; Initial encounter; Fracture, traumatic injury; Not specified; Second lumbar vertebra; Injury date: 11/06/18; Injury details: PT had a fall a few days ago at home and imaging showed a fracture; Additional info: Fracture of l2 TECHNIQUE: Imaging protocol: Multiplanar magnetic resonance images of the lumbar spine without intravenous contrast. COMPARISON: CT LUMBAR SPINE WITHOUT CONTRAST 11/06/2018 2:39 PM FINDINGS: Vertebrae: 5 lumbar-type vertebral bodies. Thoracolumbar levoscoliosis centered at L1-L2. Slight anterior wedge deformity of L1. Indentation of the anterior aspect of the superior endplate of L1 consistent with an intravertebral disc herniation. Alteration of the signal intensity of the mid to superior aspect of the L1 vertebral body consistent with marrow edema. Loss of anterior height by about 10%. Spinal cord: The cauda equina and conus medullaris are normal. The cut ends at the level of L1-L2. No intradural extra medullary abnormality. T12-L1: No significant disc bulge or protrusion. No significant facet arthropathy. No central canal stenosis. No neural foraminal narrowing. L1-L2: Diffusely bulging disc with a broad-based central disc protrusion. Mild degenerative changes of the facet joints. Mild central canal stenosis. No significant neural foraminal narrowing. L2-L3: Diffusely bulging disc. Moderate changes of facet joints. Mild central canal stenosis. Mild narrowing of the neural foramina both sides. L3-L4: Diffusely bulging disc. Mild degenerative changes of the facet joints. No central canal stenosis. Moderate narrowing of the neural foramen on the right with mild narrowing of neural foramina on the left. L4-L5: Grade 1 anterolisthesis of L4 on L5 secondary to degenerative changes of the facet joints and disc space. Severe degenerative changes of the facet joints. Severe central canal stenosis. Moderately severe narrowing of the neural foramina on both sides. L5-S1: Broad-based central disc protrusion. Moderate degenerative changes of both facet joints. Mild central canal stenosis. Moderate narrowing of the neural foramen on both sides. Soft tissues: Paraspinal muscular atrophy. Bilateral venous metallic stents. IMPRESSION: 1. Anterior wedge deformity of L1 noted in indentation of the anterior superior and plate consistent with an intravertebral disc herniation. Marrow edema involving much of the mid to upper portion of the L1 vertebral body. 2. Grade 1 anterolisthesis of L4 onto L5 with severe degenerative changes of the facet joints. Moderately severe central canal stenosis. This is associated with severe bilateral neural foraminal narrowing. 3. Since the prior CT scan of 11/06/2018, no significant new changes. Reports are not available. Patient Name: MARIETTA SALGADO Medical Record#: [id number] Ordering Physician: Diana Villagran NP Acct.#: [id number] : 1940 Age: 78 Sex: F Location: [address] [place] [address] MEDICAL Exam Date: 11/09/18919 ADM Status: ADM IN Order Information: SP LUMBAR AP/LAT 2-3 VIEWS Accession Number: [id number] CPT: 57011 Indication: L1 compression fracture. Comparison: November 08, 2018 MRI Technique: Standing AP and lateral views lumbar sacral spine with a brace in place. REPORT AND IMPRESSION: #. Mild anterior compression fracture at L1 with less than 30% loss of height without change. No additional fractures evident. #. Mild grade 1 degenerative L4-L5 anterolisthesis. Unchanged slight LEFT convex curve centered at the proximal lumbar spine. #. Multilevel mild degenerative spondylosis. 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 #. Bilateral common to external iliac artery stents. #. No gross abnormality of the soft tissue contours. Assess/Plan/Problems-Billing Assessment: This is a 78 year old female with hx of degenerative spine disease and frequent falls that presents to ED with fall and back pain. - Patient Problems (1) Intractable low back pain Code(s): M54.5 - LOW BACK PAIN SNOMED Code(s): 26298625340559799 Comment: - CT with L2 fx, NS following - MRI as above, confirmed L2 compression fracture, upright xrays with brace do not indicate instability - TLSO brace fitted - PT/OT, pain control, increased oxycodone, added flexeril with good effect - Plan for STR if clear by neurosurgery (2) COPD (chronic obstructive pulmonary disease) Code(s): J44.9 - CHRONIC OBSTRUCTIVE PULMONARY DISEASE, UNSPECIFIED SNOMED Code(s): 69230979 Comment: - Not in exacerbation, continue dulera (3) Brain aneurysm Comment: - With coil procedure, stable - conitnue apixiban (4) Diabetes Code(s): E11.9 - TYPE 2 DIABETES MELLITUS WITHOUT COMPLICATIONS SNOMED Code(s) : 53553340 Comment: - A1c 6.1, stable, no need for coverage (5) Depression Code(s): F32.9 - MAJOR DEPRESSIVE DISORDER, SINGLE EPISODE, UNSPECIFIED SNOMED Code(s): 07506015 Comment: - continue home antidpressents (6) Edema Code(s): R60.9 - EDEMA, UNSPECIFIED SNOMED Code(s): 643759118 Comment: - Continue daily lasix (7) DVT prophylaxis Code(s): Z29.9 - ENCOUNTER FOR PROPHYLACTIC MEASURES, UNSPECIFIED SNOMED Code( s): 917950784 Comment: - on apixiban (8) Full code status Code(s): Z78.9 - OTHER SPECIFIED HEALTH STATUS SNOMED Code(s): 920105780 Status and Disposition: Inpatient, will likely require STR, appreciate recs from ALISSA
[2018-11-09] MEDS: Acetaminophen TAB* 325 MG PO PRN (19:57)
[2018-11-10] MEDS: oxyCODONE TAB* 5 MG TAB PO PRN (01:55)
[2018-11-10] MEDS: Mometasone/Formoter 200/5 MDI INH SCH (07:26)
[2018-11-10] MEDS: Atorvastatin* 10 MG TAB PO SCH (09:02)
[2018-11-10] MEDS: Apixaban* 5 MG TAB PO SCH ×2 (09:02→21:02)
[2018-11-10] MEDS: buPROPion TAB* 75 MG PO SCH ×2 (09:02→21:03)
[2018-11-10] MEDS: Losartan TAB* 25 MG PO SCH (09:03)
[2018-11-10] MEDS: Escitalopram * 10 MG TAB PO SCH (09:03)
[2018-11-10] MEDS: Gabapentin CAP(*) 300 MG PO SCH ×3 (09:03→21:01)
[2018-11-10] MEDS: busPIRone TAB* 10 MG PO SCH ×2 (09:03→21:03)
[2018-11-10] MEDS: rOPINIRole TAB* 1 MG PO SCH ×3 (09:04→21:03)
[2018-11-10] MEDS: Multivitamins/Minerals TAB PO SCH (09:04)
[2018-11-10] MEDS ORDERED: oxyCODONE TAB* 5 MG TAB PO PRN (09:19)
[2018-11-10] MEDS: Cyclobenzaprine TAB* 10 MG PO PRN (09:20)
[2018-11-10] MEDS: Furosemide TAB* 20 MG PO SCH (11:25)
[2018-11-10] MEDS: Metoprolol Succinate XL TAB* 25 MG PO SCH (11:25)
[2018-11-10] MEDS: Acetaminophen TAB* 325 MG PO PRN ×2 (15:12→23:57)
--- NOTE | 2018-11-10 15:52 | PN ---
Progress Note - Progress Note Date of Service: 11/10/18 SOAP: Subjective: []No events ON. Patient ambulated with brace yesterday. Health care proxy at the bedside. Objective: [] VSS AA SRIRAM, Face symmetric Motor 4-5/5 Sensory grossly intact to light touch Assessment: []78 yof fall L1 fracture Plan: []Monitor VS, Neurochecks Upright XR reveals good alignment of the spine. Discussed findings with patient and her health care proxy. TLSO when out of bed. Follow up in our office in 2-3 weeks with Upright TL XR. Jairon Gipson MD
--- NOTE | 2018-11-10 17:50 | PN ---
Subjective Date of Service: 11/10/18 Interval History: Patient seen and examined. No acute overnight events. Remains sleepy from pain meds, limiting as tolerated. Working with PT today, pain with decent control. Denies SOB, no chest pain, no n/v/d. No further complaints. Objective Active Medications: Acetaminophen (Tylenol Tab*) 975 mg PO Q8H PRN PRN Reason: fever or mild pain Last Admin: 11/10/18 15:12 Dose: 975 mg Albuterol (Ventolin 2.5 Mg/3 Ml Neb.Ana*) 2.5 mg INH Q6H PRN PRN Reason: SOB/WHEEZING Apixaban (Eliquis*) 5 mg PO BID [facility] Last Admin: 11/10/18 09:02 Dose: 5 mg Atorvastatin Calcium (Lipitor*) 10 mg PO DAILY [facility] Last Admin: 11/10/18 09:02 Dose: 10 mg Bupropion HCl (Wellbutrin Tab*) 75 mg PO BID [facility] Last Admin: 11/10/18 09:02 Dose: 75 mg Buspirone HCl (Buspar Tab*) 10 mg PO BID [facility] Last Admin: 11/10/18 09:03 Dose: 10 mg Cyclobenzaprine HCl (Flexeril Tab*) 10 mg PO TID PRN PRN Reason: back spasm Last Admin: 11/10/18 09:20 Dose: 10 mg Escitalopram Oxalate (Lexapro *) 10 mg PO DAILY [facility] Last Admin: 11/10/18 09:03 Dose: 10 mg Furosemide (Lasix Tab*) 20 mg PO DAILY [facility] Last Admin: 11/10/18 11:25 Dose: Not Given Gabapentin (Neurontin Cap(*)) 300 mg PO TID [facility] Last Admin: 11/10/18 15:07 Dose: 300 mg Losartan Potassium (Cozaar Tab*) 25 mg PO DAILY [facility] Last Admin: 11/10/18 09:03 Dose: 25 mg Magnesium Hydroxide (Milk Of Magnesia Liq*) 30 ml PO Q6H PRN PRN Reason: CONSTIPATION Metoprolol Succinate (Toprol Xl Tab*) 25 mg PO DAILY [facility] Last Admin: 11/10/18 11:25 Dose: Not Given Mometasone Furoate/Formoterol Fumar (Dulera 200/5 Mdi*) 2 puff INH DAILY [facility] Last Admin: 11/10/18 07:26 Dose: Not Given Multivitamins/Minerals (Theragran/Minerals Tab*) 1 tab PO DAILY [facility] Last Admin: 11/10/18 09:04 Dose: Not Given Oxycodone HCl (Roxycodone Tab*) 10 mg PO Q4H PRN PRN Reason: SEVERE PAIN Last Admin: 11/10/18 01:55 Dose: 10 mg Oxycodone HCl (Roxycodone Tab*) 5 mg PO Q6H PRN PRN Reason: pain moderate Ropinirole HCl (Requip Tab*) 2 mg PO TID [facility] Last Admin: 11/10/18 15:07 Dose: 2 mg Senna (Senokot Tab*) 1 tab PO BEDTIME PRN PRN Reason: if no BM during day Last Admin: 11/10/18 01:55 Dose: 1 tab Vital Signs - 8 hr 11/10/18 11/10/18 11/10/18 11:49 12:07 15:07 Temperature 98.3 F Pulse Rate 66 Respiratory 14 18 16 Rate Blood Pressure 99/48 (mmHg) O2 Sat by Pulse 99 Oximetry 11/10/18 15:56 Temperature 97.3 F Pulse Rate 84 Respiratory 16 Rate Blood Pressure 149/69 (mmHg) O2 Sat by Pulse 99 Oximetry Oxygen Devices in Use Now: Nasal Cannula Appearance: drowsy intermittently, appropriate Eyes: No Scleral Icterus Ears/Nose/Mouth/Throat: NL Teeth, Lips, Gums, Mucous Membranes Moist Neck: NL Appearance and Movements; NL JVP, Trachea Midline Respiratory: Symmetrical Chest Expansion and Respiratory Effort, Clear to Auscultation Cardiovascular: NL Sounds; No Murmurs; No JVD, RRR Abdominal: NL Sounds; No Tenderness; No Distention Extremities: No Edema, No Clubbing, Cyanosis Skin: No Rash or Ulcers Neurological: Alert and Oriented x 3, NL Sensation Nutrition: Taking PO's Result Diagrams: 11/06/18 19:51 11/06/18 19:51 Additional Lab and Data: Lab Results 11/06/18 11/06/18 Range/Units 19:51 19:51 WBC 6.4 (3.5-10.8) 10^3/uL RBC 4.30 (3.70-4.87) 10^6 /uL Hgb 12.5 (12.0-16.0) g/dL Hct 39 (35-47) % MCV 92 (80-97) fL MCH 29 (27-31) pg MCHC 32 (31-36) g/dL RDW 15 (10-15) % Plt Count 256 (150-450) 10^3/uL MPV 8.3 (7.4-10.4) fL Neut % (Auto) 55.1 % Lymph % (Auto) 33.2 % [place] % (Auto) 5.7 % Eos % (Auto) 5.4 % Baso % (Auto) 0.6 % Absolute Neuts (auto) 3.6 (1.5-7.7) 10^3/ul Absolute Lymphs (auto) 2.1 (1.0-4.8) 10^3/ul Absolute Monos (auto) 0.4 (0-0.8) 10^3/ul Absolute Eos (auto) 0.3 (0-0.6) 10^3/ul Absolute Basos (auto) 0.0 (0-0.2) 10^3/ul Absolute Nucleated RBC 0.0 10^3/ul Nucleated RBC % 0.0 Blood Type Pending Antibody Screen Pending Diagnostic Imaging: Patient Name: MARIETTA SALGADO Medical Record#: [id number] Ordering Physician: Yamile Maxwell MD Acct.#: [id number] : 1940 Age: 78 Sex: F Location: [address] [place] [address] Exam Date: 11/08/182305 ADM Status: ADM IN Order Information: MRI LUMBAR SPINE W/O Accession Number: [id number] CPT: 95955 EXAM: MR Lumbar Spine Without Contrast. EXAM DATE/TIME: 11/08/2018 4:04 PM CLINICAL HISTORY: 78 years old, female; Injury or trauma; Initial encounter; Fracture, traumatic injury; Not specified; Second lumbar vertebra; Injury date: 11/06/18; Injury details: PT had a fall a few days ago at home and imaging showed a fracture; Additional info: Fracture of l2 TECHNIQUE: Imaging protocol: Multiplanar magnetic resonance images of the lumbar spine without intravenous contrast. COMPARISON: CT LUMBAR SPINE WITHOUT CONTRAST 11/06/2018 2:39 PM FINDINGS: Vertebrae: 5 lumbar-type vertebral bodies. Thoracolumbar levoscoliosis centered at L1-L2. Slight anterior wedge deformity of L1. Indentation of the anterior aspect of the superior endplate of L1 consistent with an intravertebral disc herniation. Alteration of the signal intensity of the mid to superior aspect of the L1 vertebral body consistent with marrow edema. Loss of anterior height by about 10%. Spinal cord: The cauda equina and conus medullaris are normal. The cut ends at the level of L1-L2. No intradural extra medullary abnormality. T12-L1: No significant disc bulge or protrusion. No significant facet arthropathy. No central canal stenosis. No neural foraminal narrowing. L1-L2: Diffusely bulging disc with a broad-based central disc protrusion. Mild degenerative changes of the facet joints. Mild central canal stenosis. No significant neural foraminal narrowing. L2-L3: Diffusely bulging disc. Moderate changes of facet joints. Mild central canal stenosis. Mild narrowing of the neural foramina both sides. L3-L4: Diffusely bulging disc. Mild degenerative changes of the facet joints. No central canal stenosis. Moderate narrowing of the neural foramen on the right with mild narrowing of neural foramina on the left. L4-L5: Grade 1 anterolisthesis of L4 on L5 secondary to degenerative changes of the facet joints and disc space. Severe degenerative changes of the facet joints. Severe central canal stenosis. Moderately severe narrowing of the neural foramina on both sides. L5-S1: Broad-based central disc protrusion. Moderate degenerative changes of both facet joints. Mild central canal stenosis. Moderate narrowing of the neural foramen on both sides. Soft tissues: Paraspinal muscular atrophy. Bilateral venous metallic stents. IMPRESSION: 1. Anterior wedge deformity of L1 noted in indentation of the anterior superior and plate consistent with an intravertebral disc herniation. Marrow edema involving much of the mid to upper portion of the L1 vertebral body. 2. Grade 1 anterolisthesis of L4 onto L5 with severe degenerative changes of the facet joints. Moderately severe central canal stenosis. This is associated with severe bilateral neural foraminal narrowing. 3. Since the prior CT scan of 11/06/2018, no significant new changes. Reports are not available. Patient Name: MARIETTA SALGADO Medical Record#: [id number] Ordering Physician: Diana Villagran NP Acct.#: [id number] : 1940 Age: 78 Sex: F Location: [address] [place] [address] - MEDICAL Exam Date: 11/09/18919 ADM Status: ADM IN Order Information: SP LUMBAR AP/LAT 2-3 VIEWS Accession Number: [id number] CPT: 57854 Indication: L1 compression fracture. Comparison: November 08, 2018 MRI Technique: Standing AP and lateral views lumbar sacral spine with a brace in place. REPORT AND IMPRESSION: #. Mild anterior compression fracture at L1 with less than 30% loss of height without change. No additional fractures evident. #. Mild grade 1 degenerative L4-L5 anterolisthesis. Unchanged slight LEFT convex curve centered at the proximal lumbar spine. #. Multilevel mild degenerative spondylosis. 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 #. Bilateral common to external iliac artery stents. #. No gross abnormality of the soft tissue contours. Assess/Plan/Problems-Billing Assessment: This is a 78 year old female with hx of degenerative spine disease and frequent falls that presents to ED with fall and back pain. - Patient Problems (1) Intractable low back pain Code(s): M54.5 - LOW BACK PAIN SNOMED Code(s): 10825214049408476 Comment: - CT with L2 fx, NS following - MRI as above, confirmed L2 compression fracture, upright xrays with brace do not indicate instability - TLSO brace fitted - PT/OT, pain control, increased oxycodone, added flexeril with good effect - Plan for STR, cleared by neurosurgery - pending bed placement (2) COPD (chronic obstructive pulmonary disease) Code(s): J44.9 - CHRONIC OBSTRUCTIVE PULMONARY DISEASE, UNSPECIFIED SNOMED Code(s): 40203738 Comment: - Not in exacerbation, continue dulera (3) Brain aneurysm Comment: - With coil procedure, stable - conitnue apixiban (4) Diabetes Code(s): E11.9 - TYPE 2 DIABETES MELLITUS WITHOUT COMPLICATIONS SNOMED Code(s) : 26472665 Comment: - A1c 6.1, stable, no need for coverage (5) Depression Code(s): F32.9 - MAJOR DEPRESSIVE DISORDER, SINGLE EPISODE, UNSPECIFIED SNOMED Code(s): 44178882 Comment: - continue home antidpressents (6) Edema Code(s): R60.9 - EDEMA, UNSPECIFIED SNOMED Code(s): 506576430 Comment: - Continue daily lasix (7) DVT prophylaxis Code(s): Z29.9 - ENCOUNTER FOR PROPHYLACTIC MEASURES, UNSPECIFIED SNOMED Code( s): 978578960 Comment: - on apixiban (8) Full code status Code(s): Z78.9 - OTHER SPECIFIED HEALTH STATUS SNOMED Code(s): 498520934 Status and Disposition: Inpatient, pending bed offer from [facility] or [facility]
--- NOTE | 2018-11-10 22:54 | DS ---
CC: Dr. Cassidy Art; Dr. Gipson of Neurosurgery * DISCHARGE SUMMARY: DATE OF ADMISSION: 11/06/18 DATE OF DISCHARGE: 11/11/18 PRIMARY CARE PROVIDER: Dr. Cassidy Art. MY ATTENDING FOR THIS DISCHARGE: Dr. Dumont.* (DICTATED BY DOMINICK CEBALLOS NP) HOSPITAL COURSE: Please refer to admitting H and P from Dr. Maxwell, but in short, Ms. Manzanares is a 78-year-old female with past medical history of COPD, on 2 L of nasal cannula continuously; brain aneurysm, status post coiling in 2018, on anticoagulation; coronary artery disease, status post stenting; diabetes; chronic sciatica; low back pain; lower extremity neuropathy; chronic lower extremity edema, who presents with inability to ambulate and 3 days of worsening back pain. The patient's daughter also endorses that her mother has been having trouble with ambulation and she has been falling. She was brought to [facility] for her progressive symptoms after she fell the last time and she felt that she heard a loud crack in her back and then became severely debilitated and felt numbness in her legs. She was noted to have a L2 burst fracture and was transferred to [facility] for further evaluation. MRI and CT scan initially of the C-spine and thoracic spine to rule out any further fractures were obtained. She was placed on bed rest, pending an MRI of the lower lumbar. Because the patient had coiling of her aneurysm, we were delayed in obtaining the MRI to ensure that her coil was MRI compatible. Records from [facility] were obtained that did show that her coil was MRI compatible. She underwent the MRI, which confirmed that she did, in fact, have this L2 burst fracture; however, it did not show any instability. Neurosurgery also recommended upright x-rays after she was fitted with a TLSO brace. Her upright x-rays again did not show instability of her fracture. She did not have any anterior movement and no cord compression. She was managed conservatively with pain medication and Flexeril. She was seen by Physical Therapy. This was complicated because of her pain and some drowsiness also from pain medication; however, she was able to participate with physical therapy on 11/10/18, whom recommended short-term rehab for her fracture. REVIEW OF SYSTEMS: On day of discharge, the patient denies any fever, fatigue or chills. No headache. No shortness of breath. No chest pain. No nausea. No vomiting. No abdominal pain. No urinary complaints. She does complain of radiating pain and some paresthesias down the right leg, but no further complaints. PHYSICAL EXAMINATION: The patient is awake and alert when taking, but she can be sleepy during our conversation. Her vital signs are blood pressure 149/69, heart rate 84, respiratory rate 16, O2 saturation 99% on O2 2 L, temperature is 97.3. The patient is atraumatic, normocephalic, PERRLA, nonicteric sclerae. Oral mucosa is moist. Tongue is midline. She wears dentures. Neck is supple, nontender. No JVD noted. No carotid bruits auscultated. Cardiovascular: S1, S2 present. No murmurs, gallops or rubs noted. Rate and rhythm are regular. Lungs are clear bilaterally to auscultation with no wheezing, rhonchi or rales. Abdomen is soft, nontender, nondistended, but moderately obese. No organomegaly noted. was deferred. Musculoskeletal: There is no clubbing, no cyanosis. She has trace by pedal edema. She has brisk cap refill. She has some diminished sensation. She has 5/5 motor bilaterally in the lower extremities and is otherwise neurovascularly intact. Neurologic grossly intact. No focal deficits. Psychiatric: Cooperative and appropriate. LABORATORY DATA: WBC 6.4, RBC 4.30, hemoglobin 12.5, hematocrit 39, platelets 256. Sodium 140, potassium 4.4, chloride 104, CO2 28, BUN 16, creatinine 1.08, GFR 49.2, glucose 107, hemoglobin A1c 6.1, lactic acid 0.6, calcium 9.6, AST 21 , ALT 14, alk phos 85, troponin is negative at 0.00. IMAGING: Lumbar spine upright x-rays show mild anterior compression fracture at L1 with less than 30% loss of height without change. No additional fracture is evident. Mild grade 1 degenerative L4-L5 anterolisthesis, unchanged slight left convex curve centered in proximal lumbar spine. Multilevel mild degenerative spondylosis, facet joint osteoarthritis prominent at L4-L5 and L5- S1, bilateral external iliac artery stents, no gross abnormality of soft tissue contours. Lumbar spine MRI, impression is anterior wedge deformity at L1 noted and indentation of the anterior superior endplate consistent with an intervertebral disc herniation. Marrow edema involving much of the [id number] portion of the L1 vertebral body. Grade 1 anterolisthesis of the L4 on to L5 with severe degenerative changes of the facet joints, moderately severe central canal stenosis. This is associated with severe bilateral neuroforaminal narrowing. Since the prior CT scan of 11/06/18, no significant new changes. Thoracic spine CT, slight anterior wedge configuration of T4, which appears to be chronic , early multilevel degenerative changes with no spinal or foraminal stenosis noted. Cervical spine CT, anterior fusion from C5-C7, multilevel degenerative changes with no spinal stenosis. There are variant degrees of neuroforaminal stenosis. No acute fracture or subluxation noted. DISCHARGE DIAGNOSES: 1. Intractable low back pain secondary to L2 burst fracture. 2. Chronic obstructive pulmonary disease, stable. 3. History of brain aneurysm, stable. 4. Diet controlled diabetes. 5. History of depression, stable. 6. Chronic lower extremity edema, stable. MEDICATIONS FOR DISCHARGE: Include: 1. Tylenol 975 p.o. q.8 hours as needed. 2. Albuterol 2.5 mg nebulized q.6 hours as needed. 3. Eliquis 5 mg p.o. b.i.d. 4. Atorvastatin 10 mg p.o. daily. 5. Bupropion 75 mg p.o. b.i.d. 6. BuSpar 10 mg p.o. b.i.d. 7. Flexeril 10 mg p.o. t.i.d. as needed. 8. Lexapro 10 mg p.o. daily. 9. Lasix 20 mg p.o. daily. 10. Gabapentin 300 mg p.o. 3 times a day. 11. Losartan 25 mg p.o. daily. 12. Milk of magnesia 30 mL p.o. q.6 hours as needed. 13. Metoprolol succinate XL 25 mg p.o. daily. 14. Dulera 200/5 two puffs inhaled daily. 15. Multivitamin with minerals 1 tab p.o. daily. 16. Oxycodone 5 mg p.o. q.6 hours as needed and 10 mg p.o. q.4 hours as needed for severe pain. 17. ReQuip 2 mg p.o. 3 times a day as scheduled. 18. Senna 1 tab p.o. at bedtime as needed. DIET: Heart healthy diabetic as tolerated. ACTIVITY: Out of bed with PT with assistance and TLSO brace at all times when out of bed. FOLLOWUP: The patient was instructed to follow up with Dr. Gipson in 2 to 3 weeks in the office and her primary care provider. The patient is from [place]. She is staying locally. We recommend primary care followup in the [facility] and then her primary care provider in [place] when she is stable to go home. PLAN: Plan is to be transported by ambulance transport to either [facility] or [facility] with bed availability on 11/11/18. She is in stable condition. TIME SPENT: 45 minutes on discharge planning. DOMINICK CEBALLOS, NCIK [id number]/CPS #: [id number] [place]
[2018-11-11] MEDS: Cyclobenzaprine TAB* 10 MG PO PRN (04:27)
[2018-11-11] MEDS: oxyCODONE TAB* 5 MG TAB PO PRN (06:36)
[2018-11-11] MEDS: Mometasone/Formoter 200/5 MDI INH SCH (07:16)
[2018-11-11] MEDS: buPROPion TAB* 75 MG PO SCH (07:39)
[2018-11-11] MEDS: Metoprolol Succinate XL TAB* 25 MG PO SCH (07:39)
[2018-11-11] MEDS: Multivitamins/Minerals TAB PO SCH (07:39)
[2018-11-11] MEDS: Losartan TAB* 25 MG PO SCH (07:39)
[2018-11-11] MEDS: Apixaban* 5 MG TAB PO SCH (07:39)
[2018-11-11] MEDS: Furosemide TAB* 20 MG PO SCH (07:39)
[2018-11-11] MEDS: rOPINIRole TAB* 1 MG PO SCH (07:39)
[2018-11-11] MEDS: Escitalopram * 10 MG TAB PO SCH (07:39)
[2018-11-11] MEDS: Atorvastatin* 10 MG TAB PO SCH (07:39)
[2018-11-11] MEDS: busPIRone TAB* 10 MG PO SCH (07:39)
[2018-11-11] MEDS: Gabapentin CAP(*) 300 MG PO SCH (07:39)
[2018-11-11 07:47] VITALS: BP 120/62
== END 2018-11-11 12:15 | disposition swing bed (61) | DRG 552 ==
LOC: ED 17:22 → MED 22:58
PROVIDERS: ADMIT Internal Medicine; ATTEND Internal Medicine
DX: S32.021A Stable burst fracture of second lumbar vertebra, initial encounter for closed fracture (principal); Z68.41 Body mass index [BMI] 40.0-44.9, adult; I67.1 Cerebral aneurysm, nonruptured; J44.9 Chronic obstructive pulmonary disease, unspecified; E11.42 Type 2 diabetes mellitus with diabetic polyneuropathy; Z99.81 Dependence on supplemental oxygen; I25.10 Atherosclerotic heart disease of native coronary artery without angina pectoris; G25.81 Restless legs syndrome; M51.16 Intervertebral disc disorders with radiculopathy, lumbar region; Z66 Do not resuscitate; M48.00 Spinal stenosis, site unspecified; W18.30XA Fall on same level, unspecified, initial encounter; F32.9 Major depressive disorder, single episode, unspecified; F41.9 Anxiety disorder, unspecified; R60.0 Localized edema; Z95.5 Presence of coronary angioplasty implant and graft; Y93.9 Activity, unspecified; Y92.9 Unspecified place or not applicable; Z79.01 Long term (current) use of anticoagulants; Z79.51 Long term (current) use of inhaled steroids; Z79.899 Other long term (current) drug therapy; Z88.8 Allergy status to other drugs, medicaments and biological substances; Z84.1 Family history of disorders of kidney and ureter; Z84.89 Family history of other specified conditions; Z46.89 Encounter for fitting and adjustment of other specified devices; Z87.891 Personal history of nicotine dependence
CPT/HCPCS: 36415; 71045; 72100; 72125; 72128; 72148; 80053; 83036; 83605; 84484; 85025; 85610; 85730; 86850; 86900; 86901; 93005; 94640; 99284; A9270-GY; G8978-GP-CK; G8979-GP-CI; J2270

== ENCOUNTER 2020-09-30 05:34 | Inpatient (IN) ==
[2020-09-30] MEDS ORDERED: Lactated Ringers 1000 ml BAG 1,000 ML IV SCH ×2 (06:00→12:00)
[2020-09-30] MEDS ORDERED: Buffered Lidocaine 1% SYRIN 1 ml INTRADERM ONE (06:00)
[2020-09-30] MEDS ORDERED: Vancomycin 1,500 MG in NS 0.9% 250 ml 250 ML IVPB ONE ×2 (06:30→18:00)
[2020-09-30] MEDS ORDERED: ceFAZolin 2 GM PREMIX 2 GM/50 ML BAG ONE (06:55)
[2020-09-30] MEDS ORDERED: Propofol 0 MG/0 ML BTL ONE (07:02)
[2020-09-30] MEDS ORDERED: Midazolam 2 mg/2 ml VIAL 1 mg/ml 2 ml VIAL (2 mg) ONE ×2 (07:02→07:22)
[2020-09-30] MEDS ORDERED: Lidocaine 2% PF 5 ML VIAL ONE ×2 (07:02→07:22)
[2020-09-30] MEDS ORDERED: Phenylephrine IV 10 MG/ML 1 ml VIAL ONE (07:02)
[2020-09-30] MEDS ORDERED: Vancomycin 1,000 MG VIAL ONE (07:13)
[2020-09-30] MEDS ORDERED: Dexamethasone IV 4 MG/ML VIAL 1 ml VIAL ONE (07:21)
[2020-09-30] MEDS ORDERED: Dexmedetomidine 200 mcg/2 ml 2 ml VIAL (200 mcg) ONE (07:21)
[2020-09-30] MEDS ORDERED: ROPIVACAINE 5 MG/ML 30 ML BTL (0.5%) ONE (07:22)
[2020-09-30] MEDS ORDERED: Propofol 10 MG/ML 20 ML BTL ONE (07:27)
[2020-09-30] MEDS ORDERED: Rocuronium 50 mg VIAL 10 mg/ml 5 ml VIAL (50 mg) ONE (07:27)
[2020-09-30] MEDS ORDERED: fentaNYL 100 mcg/2 ml 50 MCG/ML VIAL ONE ×2 (07:27→11:48)
[2020-09-30] MEDS ORDERED: Levalbuterol 1.25MG/0.5ML NEB.SOL ONE (07:38)
[2020-09-30] MEDS ORDERED: Levalbuterol 1.25MG/0.5ML NEB.SOL INH ONE (07:59)
[2020-09-30] MEDS ORDERED: Naloxone 0.4 mg VIAL 0.4 mg/ml 1 ml VIAL IV PRN (08:00)
[2020-09-30] MEDS ORDERED: DiMENhydriNATE IV 50 mg/ml 1 ml VIAL IV PUSH PRN (08:00)
[2020-09-30] MEDS ORDERED: Acetaminophen IV 1 GM/100ML 100 ML ONE (09:03)
[2020-09-30] MEDS ORDERED: Ondansetron 4 mg VIAL 2 MG/ML 2 ml VIAL ONE (09:44)
[2020-09-30] MEDS ORDERED: Magnesium Hydroxide LIQ 30 ML UDC PO PRN (11:08)
[2020-09-30] MEDS ORDERED: Ondansetron 4 mg VIAL 2 MG/ML 2 ml VIAL IV PRN (11:08)
[2020-09-30] MEDS ORDERED: diPHENhydraMINE IV 50 MG/ML 1 ml VIAL (BENADRYL) IV PRN (11:08)
[2020-09-30] MEDS ORDERED: Ondansetron ODT 4 mg TAB 4 MG TAB PO PRN (11:08)
[2020-09-30] MEDS ORDERED: Lactulose 30 ml UDC PO PRN (11:08)
[2020-09-30] MEDS ORDERED: diPHENhydraMINE 25 mg TAB PO PRN (11:08)
[2020-09-30] MEDS ORDERED: Morphine 2 MG/ML SYRINGE IV PRN (11:08)
[2020-09-30] MEDS ORDERED: [UNRECOGNIZED DRUG - OTHER] TOPICAL PRN (11:15)
[2020-09-30] MEDS ORDERED: SPIRIVA Respimat (tiotropium) 2.5 mcg/inh Inhaler INH PRN (11:15)
[2020-09-30] MEDS ORDERED: Mometasone/Formoter 200/5 MDI INH PRN (11:15)
[2020-09-30] MEDS ORDERED: NITROGLYCERIN TRANSLINGUAL PRN (11:15)
[2020-09-30] MEDS ORDERED: Albuterol HFA INHALER 8 gm MDI INH PRN (11:15)
[2020-09-30] MEDS ORDERED: Phenylephrine 40 mcg/mL 10mL (400mcg) SYRINGE ONE ×2 (11:45)
[2020-09-30] MEDS: fentaNYL 100 mcg/2 ml 50 MCG/ML VIAL IV PRN ×4 (11:50→14:39)
[2020-09-30] MEDS ORDERED: Phenylephrine IV 50 MG in NS 0.9% 250 ml 245 ML IV SCH (12:00)
[2020-09-30] MEDS ORDERED: ceFAZolin 1 GM ADVAN 1 GM in NS 0.9% 50 ML 50 ML IVPB SCH (12:00)
[2020-09-30 14:19] LABS: Hematocrit 22 % (35-47); Hemoglobin 6.7 g/dL (12.0-16.0)
[2020-09-30] MEDS ORDERED: Morphine 2 MG/ML SYRINGE ONE (15:10)
[2020-09-30] MEDS ORDERED: Vancomycin per Pharmacy 1 EA NOTE FOLLOW UP PRN (15:37)
[2020-09-30] MEDS ORDERED: Norepinephrine 16MCG/ML IVPRE 4,000 MCG/250 ML BAG IV SCH (16:00)
[2020-09-30] MEDS ORDERED: fentaNYL 100 mcg/2 ml 50 MCG/ML VIAL IV SLOW PU PRN (16:02)
[2020-09-30] MEDS: NORMOSOL-R pH 7.4 1000 mL BAG 1,000 ML IV SCH (16:17)
[2020-09-30 16:49] LABS: Mean Corpuscular HGB Conc 30 g/dL (31-36); Mean Corpuscular Hemoglobin 27 pg (27-31); Mean Corpuscular Volume 89 fL (80-97); Mean Platelet Volume 9.4 fL (7.4-10.4); Platelet Count 257 10^3/uL (150-450); Red Blood Count 2.45 10^6 /uL (3.70-4.87); Red Cell Distribution Width 17 % (10-15); White Blood Count 12.9 10^3/uL (3.5-10.8)
[2020-09-30 17:37] LABS: Calcium 7.9 mg/dL (8.6-10.3); EGFR African American 51.9 (>60); EGFR Non-African American 42.9 (>60); Magnesium 1.8 mg/dL (1.9-2.7)
[2020-09-30 17:39] LABS: Potassium 5.3 mmol/L (3.5-5.0)
[2020-09-30] MEDS: Magnesium Hydroxide LIQ 30 ML UDC PO SCH (21:28)
[2020-09-30] MEDS: CMC:Pravastatin 20 mg TAB (NF) PO SCH (21:28)
[2020-09-30] MEDS: Nitrofurantoin (monohydrate/macrocrystals) 100 mg CAP PO SCH (21:28)
[2020-10-01] MEDS: Clindamycin 600 MG/D5W BAG 600 MG/50 ML BAG IV SCH ×2 (02:14→10:14)
[2020-10-01 04:40] LABS: Hematocrit 27 % (35-47); Hemoglobin 8.8 g/dL (12.0-16.0); Mean Platelet Volume 8.9 fL (7.4-10.4); Platelet Count 201 10^3/uL (150-450)
[2020-10-01 04:58] LABS: Calcium 7.6 mg/dL (8.6-10.3); EGFR African American 38.7 (>60)
[2020-10-01] MEDS: Magnesium Hydroxide LIQ 30 ML UDC PO SCH ×2 (08:03→22:18)
[2020-10-01] MEDS: Cholecalciferol (VIT D3) 1,000 unit TAB PO SCH (08:03)
[2020-10-01] MEDS: CMC:Anastrozole 1 mg TAB (NF) PO SCH (08:03)
[2020-10-01] MEDS: Aspirin EC 81 mg TAB.EC (enteric coated) PO SCH (08:03)
[2020-10-01] MEDS: Vitamin THERAPEUTIC TAB PO SCH (08:03)
[2020-10-01] MEDS: Potassium Chlor 10 meq TAB PO SCH (08:03)
[2020-10-01] MEDS: Nitrofurantoin (monohydrate/macrocrystals) 100 mg CAP PO SCH ×2 (08:03→22:18)
[2020-10-01] MEDS: DICLOFENAC 1.3% TRANSDERM SCH (08:48)
[2020-10-01] MEDS ORDERED: ROPINIROLE 2 MG PO SCH (09:00)
[2020-10-01] MEDS: NORMOSOL-R pH 7.4 1000 mL BAG 1,000 ML IV SCH (14:09)
[2020-10-01] MEDS: [UNRECOGNIZED DRUG - OTHER] PATCH OFF SCH (22:11)
[2020-10-01] MEDS: CMC:Pravastatin 20 mg TAB (NF) PO SCH (22:18)
[2020-10-02 06:20] LABS: Hematocrit 25 % (35-47); Hemoglobin 8.1 g/dL (12.0-16.0); Mean Platelet Volume 9.1 fL (7.4-10.4); Platelet Count 186 10^3/uL (150-450)
[2020-10-02] MEDS: Cholecalciferol (VIT D3) 1,000 unit TAB PO SCH (08:00)
[2020-10-02] MEDS: Potassium Chlor 10 meq TAB PO SCH (08:00)
[2020-10-02] MEDS: Aspirin EC 81 mg TAB.EC (enteric coated) PO SCH (08:00)
[2020-10-02 08:48] LABS: CO2 Carbon Dioxide 33 mmol/L (22-32); Calcium 7.8 mg/dL (8.6-10.3); Chloride 105 mmol/L (101-111); Sodium 138 mmol/L (135-145)
[2020-10-02 08:53] LABS: Blood Urea Nitrogen 26 mg/dL (6-24); EGFR African American 54.5 (>60); EGFR Non-African American 45.1 (>60); Glucose 127 mg/dL (70-100); Potassium 5.1 mmol/L (3.5-5.0)
[2020-10-02] MEDS: Nitrofurantoin (monohydrate/macrocrystals) 100 mg CAP PO SCH ×2 (09:49→22:00)
[2020-10-02] MEDS: CMC:Anastrozole 1 mg TAB (NF) PO SCH (09:49)
[2020-10-02] MEDS: DICLOFENAC 1.3% TRANSDERM SCH (09:58)
[2020-10-02] MEDS: Vitamin THERAPEUTIC TAB PO SCH (10:00)
[2020-10-02] MEDS: Magnesium Hydroxide LIQ 30 ML UDC PO SCH ×2 (10:02→21:59)
[2020-10-02] MEDS: [UNRECOGNIZED DRUG - OTHER] PATCH OFF SCH (22:00)
[2020-10-02] MEDS: CMC:Pravastatin 20 mg TAB (NF) PO SCH (22:00)
[2020-10-03 04:57] LABS: Hematocrit 25 % (35-47); Hemoglobin 7.9 g/dL (12.0-16.0); Mean Platelet Volume 8.7 fL (7.4-10.4); Platelet Count 192 10^3/uL (150-450)
[2020-10-03] MEDS: Aspirin EC 81 mg TAB.EC (enteric coated) PO SCH (09:17)
[2020-10-03] MEDS: CMC:Anastrozole 1 mg TAB (NF) PO SCH (09:17)
[2020-10-03] MEDS: Cholecalciferol (VIT D3) 1,000 unit TAB PO SCH (09:18)
[2020-10-03] MEDS: Nitrofurantoin (monohydrate/macrocrystals) 100 mg CAP PO SCH (09:18)
[2020-10-03] MEDS: Vitamin THERAPEUTIC TAB PO SCH (09:18)
[2020-10-03] MEDS: DICLOFENAC 1.3% TRANSDERM SCH (09:19)
[2020-10-03] MEDS: Potassium Chlor 10 meq TAB PO SCH (09:20)
[2020-10-03] MEDS: Magnesium Hydroxide LIQ 30 ML UDC PO SCH (09:20)
[2020-10-03 16:21] LABS: Hematocrit 29 % (35-47); Hemoglobin 9.2 g/dL (12.0-16.0)
[2020-10-03 17:30] VITALS: BP 115/44
== END 2020-10-03 18:50 | disposition swing bed (61) ==
LOC: ICU 05:34 → OR 05:34 → OBSVTOIN 11:08 → SSU 10-01 18:58
PROVIDERS: ADMIT Orthopaedic Surgery; ATTEND Orthopaedic Surgery

== ENCOUNTER 2020-10-31 09:24 | Inpatient (IN) ==
[2020-10-31] MEDS ORDERED: NS 0.9% 1000 ml BAG 1,000 ML IV ONE (09:48)
[2020-10-31 10:10] LABS: ABS Eosinophils 0.2 10^3/ul (0-0.6); ABS Lymphocytes 1.2 10^3/ul (1.0-4.8); ABS Monocytes 0.4 10^3/ul (0-0.8); ABS Neutrophils 3.2 10^3/ul (1.5-7.7); Eosinophil % 4.6 %; Hematocrit 31 % (35-47); Mean Corpuscular HGB Conc 33 g/dL (31-36); Mean Corpuscular Hemoglobin 30 pg (27-31); Mean Corpuscular Volume 91 fL (80-97); Mean Platelet Volume 8.4 fL (7.4-10.4); Nucleated Red Blood Cells % 0.1; Platelet Count 276 10^3/uL (150-450); Red Blood Count 3.35 10^6 /uL (3.70-4.87); Red Cell Distribution Width 18 % (10-15)
[2020-10-31] MEDS ORDERED: Morphine 4 MG/ML VIAL (1 ml) IV ONE (10:19)
[2020-10-31 10:36] LABS: Albumin 3.4 g/dL (3.2-5.2); Albumin/Globulin Ratio 1.1 (1-3); Calcium 8.9 mg/dL (8.6-10.3); EGFR Non-African American 63.7 (>60); Globulin 3.2 g/dL (2-4); Magnesium 1.7 mg/dL (1.9-2.7); Potassium 4.1 mmol/L (3.5-5.0); Total Bilirubin 0.6 mg/dL (0.2-1.0); Total Protein 6.6 g/dL (6.4-8.9)
[2020-10-31 11:14] LABS: TSH Ultra Thyroid Stim Horm 1.09 mcIU/mL (0.34-5.60)
[2020-10-31] MEDS ORDERED: Magnesium Sulfate 2 gm BAG 2 GM/50 ML BAG IVPB ONE (12:15)
[2020-10-31 12:28] LABS: Activated Partial Thrombo Time 32.5 seconds (26.0-38.0); INR 1.53 (0.86-1.15)
[2020-10-31] MEDS ORDERED: Albuterol HFA INHALER 8 gm MDI INH PRN (16:03)
[2020-10-31] MEDS ORDERED: Acetaminophen IV 1 GM/100ML 100 ML IV ONE (16:30)
[2020-10-31 17:08] LABS: C Reactive Protein 11.8 mg/L (<8.01)
[2020-10-31] MEDS: Mometasone/Formoter 200/5 MDI INH SCH (19:42)
[2020-10-31] MEDS: Lidocaine Patch REMOVE PATCH PATCH OFF SCH (21:25)
[2020-11-01 08:01] LABS: ABS Eosinophils 0.3 10^3/ul (0-0.6); ABS Lymphocytes 1.2 10^3/ul (1.0-4.8); ABS Monocytes 0.3 10^3/ul (0-0.8); Eosinophil % 6.1 %; Hematocrit 28 % (35-47); Hemoglobin 9.2 g/dL (12.0-16.0); Lymphocyte % 25.1 %; Mean Corpuscular HGB Conc 33 g/dL (31-36); Mean Corpuscular Hemoglobin 30 pg (27-31); Mean Corpuscular Volume 91 fL (80-97); Mean Platelet Volume 8.5 fL (7.4-10.4); Platelet Count 251 10^3/uL (150-450); Red Blood Count 3.09 10^6 /uL (3.70-4.87); Red Cell Distribution Width 18 % (10-15); White Blood Count 4.9 10^3/uL (3.5-10.8)
[2020-11-01 08:15] LABS: Calcium 8.6 mg/dL (8.6-10.3); EGFR Non-African American 61.2 (>60); Potassium 3.6 mmol/L (3.5-5.0)
[2020-11-01] MEDS: Lidocaine PATCH 5% PATCH TRANSDERM SCH (10:01)
[2020-11-01] MEDS: Potassium Chlor 10 meq TAB PO SCH (10:03)
[2020-11-01] MEDS: CMCS: Anastrozole 1 mg TAB (NF) PO SCH (10:04)
[2020-11-01] MEDS: Cholecalciferol (VIT D3) 1,000 unit TAB PO SCH (10:04)
[2020-11-01] MEDS: CMCS: Pravastatin 20 mg TAB (NF) PO SCH (10:05)
[2020-11-01] MEDS: Mometasone/Formoter 200/5 MDI INH SCH ×2 (12:36→20:20)
[2020-11-01] MEDS: SPIRIVA Respimat (tiotropium) 2.5 mcg/inh Inhaler INH SCH (12:37)
[2020-11-01] MEDS: Lidocaine Patch REMOVE PATCH PATCH OFF SCH (21:32)
[2020-11-01 21:38] LABS: Urine Appearance Cloudy; Urine Bilirubin Negative (Negative); Urine Blood 2+ (Negative); Urine Color Yellow; Urine Glucose Negative (Negative); Urine Ketones Negative (Negative); Urine Nitrite Positive (Negative); Urine Protein Negative (Negative); Urine Urobilinogen Negative (Negative)
[2020-11-01 21:45] LABS: Urine Bacteria 2+ (Absent); Urine Red Blood Cell 1+(3-5/hpf) (Absent); Urine Squamous Epithelial Cell Present (Absent); Urine White Blood Cell 2+(11-20/hpf) (Absent)
[2020-11-02] MEDS: SPIRIVA Respimat (tiotropium) 2.5 mcg/inh Inhaler INH SCH (07:30)
[2020-11-02] MEDS: Mometasone/Formoter 200/5 MDI INH SCH ×2 (07:30→20:07)
[2020-11-02] MEDS: Cholecalciferol (VIT D3) 1,000 unit TAB PO SCH (09:18)
[2020-11-02] MEDS: Lidocaine PATCH 5% PATCH TRANSDERM SCH (09:18)
[2020-11-02] MEDS: Potassium Chlor 10 meq TAB PO SCH (09:21)
[2020-11-02] MEDS: CMCS: Pravastatin 20 mg TAB (NF) PO SCH (09:24)
[2020-11-02] MEDS: CMCS: Anastrozole 1 mg TAB (NF) PO SCH (09:24)
[2020-11-02] MEDS: Nitrofurantoin (monohydrate/macrocrystals) 100 mg CAP PO SCH ×2 (10:22→20:19)
[2020-11-02] MEDS: Lidocaine Patch REMOVE PATCH PATCH OFF SCH (21:58)
[2020-11-03 05:33] LABS: ABS Eosinophils 0.3 10^3/ul (0-0.6); ABS Lymphocytes 1.1 10^3/ul (1.0-4.8); ABS Monocytes 0.4 10^3/ul (0-0.8); Eosinophil % 6.5 %; Hematocrit 29 % (35-47); Hemoglobin 9.6 g/dL (12.0-16.0); Lymphocyte % 23.2 %; Mean Corpuscular HGB Conc 33 g/dL (31-36); Mean Corpuscular Hemoglobin 30 pg (27-31); Mean Corpuscular Volume 91 fL (80-97); Mean Platelet Volume 8.5 fL (7.4-10.4); Platelet Count 272 10^3/uL (150-450); Red Blood Count 3.18 10^6 /uL (3.70-4.87); Red Cell Distribution Width 18 % (10-15); White Blood Count 4.8 10^3/uL (3.5-10.8)
[2020-11-03 05:55] LABS: Calcium 9.1 mg/dL (8.6-10.3); EGFR Non-African American 62.8 (>60); Magnesium 1.7 mg/dL (1.9-2.7)
[2020-11-03] MEDS: Mometasone/Formoter 200/5 MDI INH SCH ×2 (07:18→19:32)
[2020-11-03] MEDS: SPIRIVA Respimat (tiotropium) 2.5 mcg/inh Inhaler INH SCH (07:18)
[2020-11-03] MEDS: Lidocaine PATCH 5% PATCH TRANSDERM SCH (08:35)
[2020-11-03] MEDS: Nitrofurantoin (monohydrate/macrocrystals) 100 mg CAP PO SCH ×2 (08:38→23:01)
[2020-11-03] MEDS: Cholecalciferol (VIT D3) 1,000 unit TAB PO SCH (08:40)
[2020-11-03] MEDS: Potassium Chlor 10 meq TAB PO SCH (08:40)
[2020-11-03] MEDS: CMCS: Pravastatin 20 mg TAB (NF) PO SCH (10:26)
[2020-11-03] MEDS: CMCS: Anastrozole 1 mg TAB (NF) PO SCH (10:27)
[2020-11-03] MEDS: PAIN RELIEVING RUB (MENTHOL/SALICYLATE) 1 APPLIC TUBE TOPICAL PRN (13:55)
[2020-11-03] MEDS: Lidocaine Patch REMOVE PATCH PATCH OFF SCH (23:02)
[2020-11-04] MEDS: Mometasone/Formoter 200/5 MDI INH SCH ×2 (07:37→19:43)
[2020-11-04] MEDS: SPIRIVA Respimat (tiotropium) 2.5 mcg/inh Inhaler INH SCH (07:37)
[2020-11-04] MEDS: Lidocaine PATCH 5% PATCH TRANSDERM SCH (08:29)
[2020-11-04] MEDS: Cholecalciferol (VIT D3) 1,000 unit TAB PO SCH (08:30)
[2020-11-04] MEDS: Potassium Chlor 10 meq TAB PO SCH (08:31)
[2020-11-04] MEDS: CMCS: Anastrozole 1 mg TAB (NF) PO SCH (08:32)
[2020-11-04] MEDS: CMCS: Pravastatin 20 mg TAB (NF) PO SCH (08:32)
[2020-11-04] MEDS: PAIN RELIEVING RUB (MENTHOL/SALICYLATE) 1 APPLIC TUBE TOPICAL PRN ×2 (08:32→21:42)
[2020-11-04] MEDS: Nitrofurantoin (monohydrate/macrocrystals) 100 mg CAP PO SCH (10:16)
[2020-11-04 11:29] LABS: Calcium 9.1 mg/dL (8.6-10.3); EGFR African American 61.9 (>60); EGFR Non-African American 51.1 (>60); Magnesium 1.9 mg/dL (1.9-2.7); Potassium 4.1 mmol/L (3.5-5.0)
[2020-11-04 15:18] LABS: Venous Bicarbonate HCO3 23.2 mmol/L (24-28)
[2020-11-04] MEDS ORDERED: Amoxicillin/Clavul 500/125 TAB (Augmentin 500 mg tab) PO SCH (21:00)
[2020-11-04] MEDS: Lidocaine Patch REMOVE PATCH PATCH OFF SCH (21:39)
[2020-11-05 06:48] LABS: Calcium 9.1 mg/dL (8.6-10.3); EGFR African American 64.7 (>60); EGFR Non-African American 53.5 (>60); Potassium 3.8 mmol/L (3.5-5.0)
[2020-11-05] MEDS: Mometasone/Formoter 200/5 MDI INH SCH ×2 (07:50→20:06)
[2020-11-05] MEDS: SPIRIVA Respimat (tiotropium) 2.5 mcg/inh Inhaler INH SCH (08:47)
[2020-11-05] MEDS: Cholecalciferol (VIT D3) 1,000 unit TAB PO SCH (09:07)
[2020-11-05] MEDS: Potassium Chlor 10 meq TAB PO SCH (09:07)
[2020-11-05] MEDS: CMCS: Anastrozole 1 mg TAB (NF) PO SCH (09:09)
[2020-11-05] MEDS: Lidocaine PATCH 5% PATCH TRANSDERM SCH (09:10)
[2020-11-05] MEDS: CMCS: Pravastatin 20 mg TAB (NF) PO SCH (09:10)
[2020-11-05] MEDS: Lidocaine Patch REMOVE PATCH PATCH OFF SCH (21:26)
[2020-11-06] MEDS: Mometasone/Formoter 200/5 MDI INH SCH ×2 (07:53→19:59)
[2020-11-06] MEDS: SPIRIVA Respimat (tiotropium) 2.5 mcg/inh Inhaler INH SCH (07:54)
[2020-11-06] MEDS: Cholecalciferol (VIT D3) 1,000 unit TAB PO SCH (09:18)
[2020-11-06] MEDS: Potassium Chlor 10 meq TAB PO SCH (09:19)
[2020-11-06] MEDS: CMCS: Anastrozole 1 mg TAB (NF) PO SCH (09:20)
[2020-11-06] MEDS: CMCS: Pravastatin 20 mg TAB (NF) PO SCH (09:20)
[2020-11-06] MEDS: Lidocaine PATCH 5% PATCH TRANSDERM SCH (09:21)
[2020-11-06] MEDS: Lidocaine Patch REMOVE PATCH PATCH OFF SCH (21:50)
[2020-11-07] MEDS: Mometasone/Formoter 200/5 MDI INH SCH (08:16)
[2020-11-07] MEDS: SPIRIVA Respimat (tiotropium) 2.5 mcg/inh Inhaler INH SCH (08:16)
[2020-11-07 10:58] VITALS: BP 116/51
[2020-11-07 11:09] LABS: ABS Eosinophils 0.2 10^3/ul (0-0.6); ABS Monocytes 0.3 10^3/ul (0-0.8); ABS Neutrophils 3.4 10^3/ul (1.5-7.7); Hematocrit 30 % (35-47); Hemoglobin 9.7 g/dL (12.0-16.0); Lymphocyte % 20.9 %; Mean Corpuscular HGB Conc 32 g/dL (31-36); Mean Corpuscular Hemoglobin 29 pg (27-31); Mean Corpuscular Volume 92 fL (80-97); Mean Platelet Volume 9.1 fL (7.4-10.4); Platelet Count 292 10^3/uL (150-450); Red Blood Count 3.29 10^6 /uL (3.70-4.87); Red Cell Distribution Width 17 % (10-15)
[2020-11-07] MEDS: Potassium Chlor 10 meq TAB PO SCH (11:09)
[2020-11-07] MEDS: CMCS: Pravastatin 20 mg TAB (NF) PO SCH (11:11)
[2020-11-07] MEDS: CMCS: Anastrozole 1 mg TAB (NF) PO SCH (11:11)
[2020-11-07] MEDS: Lidocaine PATCH 5% PATCH TRANSDERM SCH (11:14)
[2020-11-07] MEDS: Cholecalciferol (VIT D3) 1,000 unit TAB PO SCH (11:16)
== END 2020-11-07 15:51 | DRG 86 ==
LOC: ED 09:24 → MEDTELE 16:49
PROVIDERS: ADMIT Internal Medicine; ATTEND Hospitalist

== ENCOUNTER 2023-04-23 20:26 | Inpatient (IN) ==
[2023-04-23] MEDS ORDERED: Lactated Ringers 1000 ml BAG 1,000 ML IV ONE (20:40)
[2023-04-23 22:12] LABS: ABS Basophils 0.1 10^3/uL (0.0-0.1); ABS Eosinophils 0.1 10^3/uL (0.0-0.5); ABS Lymphocytes 1.2 10^3/uL (1.0-4.8); ABS Monocytes 0.6 10^3/uL (0.0-0.9); ABS Neutrophils 8.1 10^3/uL (1.5-7.6); Eosinophil % 0.9 %; Hematocrit 19.5 % (35-45); Hemoglobin 6.4 g/dL (11.5-14.3); Lymphocyte % 11.4 %; Mean Corpuscular Hemoglobin 31.1 pg (27-33); Mean Corpuscular Hgb Conc 32.7 g/dL (31-36); Mean Corpuscular Volume 95.2 fL (80-97); Mean Platelet Volume 8.8 fL (7.5-11.2); Platelet Count 272 10^3/uL (150-450); Red Blood Count 2.05 10^6/uL (3.63-4.92); Red Cell Distribution Width 16.9 % (12-17); White Blood Count 10.1 10^3/uL (3.8-11.8)
[2023-04-24 00:37] LABS: High Sensitivity Troponin 1 Hr 303 pg/mL (<15)
[2023-04-24] MEDS ORDERED: Lactated Ringers 1000 ml BAG 1,000 ML IV ONE (06:48)
[2023-04-24] MEDS ORDERED: Dextrose 50% Syringe 50 ml 25 GM/50 ML SYRINGE IV PUSH PRN (07:35)
[2023-04-24 08:59] LABS: Venous Bicarbonate HCO3 22.5 mmol/L (24-28)
[2023-04-24 09:07] LABS: ABS Eosinophils 0.2 10^3/uL (0.0-0.5); ABS Lymphocytes 1.3 10^3/uL (1.0-4.8); ABS Monocytes 0.4 10^3/uL (0.0-0.9); ABS Neutrophils 5.6 10^3/uL (1.5-7.6); Eosinophil % 2.3 %; Hematocrit 23.1 % (35-45); Hemoglobin 7.7 g/dL (11.5-14.3); Lymphocyte % 17.5 %; Mean Corpuscular Hemoglobin 30.9 pg (27-33); Mean Corpuscular Hgb Conc 33.5 g/dL (31-36); Mean Corpuscular Volume 92.5 fL (80-97); Mean Platelet Volume 8.9 fL (7.5-11.2); Platelet Count 256 10^3/uL (150-450); Red Cell Distribution Width 17.4 % (12-17); White Blood Count 7.6 10^3/uL (3.8-11.8)
[2023-04-24 09:24] LABS: ALT 9 U/L (7-52); AST 21 U/L (13-39); Albumin 2.9 g/dL (3.2-5.2); Albumin/Globulin Ratio 1.1 (1-3); Alkaline Phosphatase 95 U/L (35-149); Anion Gap 8 mmol/L (2-16); Blood Urea Nitrogen 36 mg/dL (6-24); CO2 Carbon Dioxide 23 mmol/L (22-32); Calcium 7.9 mg/dL (8.6-10.3); Chloride 109 mmol/L (101-111); Creatinine, Serum 1.58 mg/dL (0.51-0.95); Globulin 2.6 g/dL (2-4); Glucose 88 mg/dL (70-100); Magnesium 2.1 mg/dL (1.9-2.7); Potassium 4.2 mmol/L (3.5-5.0); Sodium 140 mmol/L (135-145); Total Bilirubin 0.5 mg/dL (0.2-1.0); Total Protein 5.5 g/dL (6.4-8.9); eGFR CKD-EPI 32.5 (>60)
[2023-04-24 10:27] LABS: Ferritin 316.1 ng/mL (11-307)
[2023-04-24 10:30] LABS: .Transferrin 132 mg/dL (203-362); Total Iron Binding Capacity 185 mcg/dL (250-450)
[2023-04-24 10:31] LABS: Folate 15.67 ng/mL (5.90-24.80)
[2023-04-24 10:32] LABS: Vitamin B12 > 1450 pg/mL (180-914)
[2023-04-24 12:30] LABS: % Iron Saturation 11 % (15-55); .Transferrin 127 mg/dL (203-362); Iron < 20 ug/dL (50-212); Total Iron Binding Capacity 178 mcg/dL (250-450); Unsaturated Iron Binding 158 ug/dL
[2023-04-24 15:20] LABS: ABS Eosinophils 0.2 10^3/uL (0.0-0.5); ABS Lymphocytes 1.5 10^3/uL (1.0-4.8); ABS Monocytes 0.4 10^3/uL (0.0-0.9); ABS Neutrophils 4.4 10^3/uL (1.5-7.6); Eosinophil % 3.8 %; Hemoglobin 8.6 g/dL (11.5-14.3); Lymphocyte % 23.4 %; Mean Corpuscular Hemoglobin 30.6 pg (27-33); Mean Corpuscular Volume 92.8 fL (80-97); Mean Platelet Volume 9.1 fL (7.5-11.2); Nucleated Red Blood Cells % 0.1 %/100WBC (0.0-0.8); Platelet Count 252 10^3/uL (150-450); Red Cell Distribution Width 17.4 % (12-17); White Blood Count 6.5 10^3/uL (3.8-11.8)
[2023-04-24 15:42] LABS: Anion Gap 7 mmol/L (2-16); Blood Urea Nitrogen 34 mg/dL (6-24); CO2 Carbon Dioxide 21 mmol/L (22-32); Chloride 109 mmol/L (101-111); Creatinine, Serum 1.47 mg/dL (0.51-0.95); Glucose 86 mg/dL (70-100); Sodium 137 mmol/L (135-145); eGFR CKD-EPI 35.4 (>60)
[2023-04-24] MEDS: cefTRIAXone 1 gm/50 mL D5W 1 GM/50 ML BAG IV SCH (18:14)
[2023-04-25 08:40] LABS: ABS Eosinophils 0.2 10^3/uL (0.0-0.5); ABS Lymphocytes 0.9 10^3/uL (1.0-4.8); ABS Monocytes 0.3 10^3/uL (0.0-0.9); ABS Neutrophils 4.3 10^3/uL (1.5-7.6); ABS Nucleated RBC 0.01 10^3/ul; Eosinophil % 3.9 %; Hematocrit 26.1 % (35-45); Hemoglobin 8.4 g/dL (11.5-14.3); Lymphocyte % 16.2 %; Mean Corpuscular Hemoglobin 30.3 pg (27-33); Mean Corpuscular Hgb Conc 32.2 g/dL (31-36); Mean Corpuscular Volume 94.1 fL (80-97); Mean Platelet Volume 8.2 fL (7.5-11.2); Nucleated Red Blood Cells % 0.2 %/100WBC (0.0-0.8); Platelet Count 283 10^3/uL (150-450); Red Blood Count 2.78 10^6/uL (3.63-4.92); Red Cell Distribution Width 17.9 % (12-17); White Blood Count 5.8 10^3/uL (3.8-11.8)
[2023-04-25 09:52] LABS: Calcium 8.1 mg/dL (8.6-10.3); Creatinine, Serum 1.16 mg/dL (0.51-0.95); Potassium 4.3 mmol/L (3.5-5.0); eGFR CKD-EPI 47.1 (>60)
[2023-04-25] MEDS: cefTRIAXone 1 gm/50 mL D5W 1 GM/50 ML BAG IV SCH (17:39)
[2023-04-25] MEDS: Enoxaparin 40 MG/0.4 ML SYR SUBCUT SCH (19:47)
[2023-04-26 06:57] LABS: Hematocrit 25.7 % (35-45); Hemoglobin 8.4 g/dL (11.5-14.3); Mean Corpuscular Hgb Conc 32.5 g/dL (31-36); Mean Corpuscular Volume 92.5 fL (80-97); Mean Platelet Volume 8.2 fL (7.5-11.2); Platelet Count 324 10^3/uL (150-450); Red Blood Count 2.78 10^6/uL (3.63-4.92); Red Cell Distribution Width 16.9 % (12-17); White Blood Count 5.4 10^3/uL (3.8-11.8)
[2023-04-26 08:01] LABS: Calcium 8.1 mg/dL (8.6-10.3); Creatinine, Serum 1.02 mg/dL (0.51-0.95); Magnesium 1.9 mg/dL (1.9-2.7); Phosphorus 2.9 mg/dL (2.5-5.0); Potassium 3.9 mmol/L (3.5-5.0); eGFR CKD-EPI 54.9 (>60)
[2023-04-26] MEDS ORDERED: Magnesium Sulfate IV 1GM/100ML 1 GM/100 ML BAG IV ONE (10:14)
[2023-04-26] MEDS ORDERED: Potassium Chlor 10 meq TAB PO ONE (11:17)
[2023-04-26 12:29] LABS: Corrected Retic Count 1.1 % (0.5-1.5); Hematocrit for Retic CNT 25.7 % (35-45); Immature Retic Fraction 0.36; RBC Retic Count 2.75 10^6/ul (3.63-4.92)
[2023-04-26] MEDS ORDERED: Albuterol HFA INHALER 8 gm MDI INH PRN (15:42)
[2023-04-26] MEDS ORDERED: Albuterol/Ipratropium NEB.SOL (2.5/0.5 MG) 3 ML NEB.SOLN INH PRN (15:50)
[2023-04-26] MEDS: cefTRIAXone 1 gm/50 mL D5W 1 GM/50 ML BAG IV SCH (17:01)
[2023-04-26] MEDS: Enoxaparin 40 MG/0.4 ML SYR SUBCUT SCH (21:11)
[2023-04-27 06:59] LABS: ABS Eosinophils 0.1 10^3/uL (0.0-0.5); ABS Lymphocytes 0.9 10^3/uL (1.0-4.8); ABS Monocytes 0.4 10^3/uL (0.0-0.9); ABS Neutrophils 2.5 10^3/uL (1.5-7.6); ABS Nucleated RBC 0.01 10^3/ul; Eosinophil % 2.3 %; Hematocrit 27.4 % (35-45); Hemoglobin 8.9 g/dL (11.5-14.3); Lymphocyte % 23.5 %; Mean Corpuscular Hgb Conc 32.5 g/dL (31-36); Mean Corpuscular Volume 92.3 fL (80-97); Mean Platelet Volume 7.9 fL (7.5-11.2); Nucleated Red Blood Cells % 0.2 %/100WBC (0.0-0.8); Platelet Count 330 10^3/uL (150-450); Red Blood Count 2.96 10^6/uL (3.63-4.92); White Blood Count 3.9 10^3/uL (3.8-11.8)
[2023-04-27 07:14] LABS: Creatinine, Serum 0.99 mg/dL (0.51-0.95); Magnesium 2.1 mg/dL (1.9-2.7); Potassium 4.1 mmol/L (3.5-5.0); eGFR CKD-EPI 56.9 (>60)
[2023-04-27] MEDS: Cholecalciferol (VIT D3) 1,000 unit TAB PO SCH (08:43)
[2023-04-27] MEDS: CMCS:Anastrozole 1 mg TAB (NF) PO SCH (08:43)
[2023-04-27] MEDS ORDERED: cefTRIAXone ADVAN VIAL 1 GM in NS 0.9% 50 ML 50 ML IV SCH (18:00)
[2023-04-27] MEDS: Amoxicillin/Clavul 875/125 TAB (Augmentin 875 tab) PO SCH (19:48)
[2023-04-27] MEDS: Enoxaparin 40 MG/0.4 ML SYR SUBCUT SCH (19:49)
[2023-04-28 05:54] LABS: ABS Eosinophils 0.2 10^3/uL (0.0-0.5); ABS Lymphocytes 1.4 10^3/uL (1.0-4.8); ABS Monocytes 0.4 10^3/uL (0.0-0.9); ABS Neutrophils 2.8 10^3/uL (1.5-7.6); Eosinophil % 3.3 %; Hemoglobin 8.9 g/dL (11.5-14.3); Lymphocyte % 28.8 %; Mean Corpuscular Hemoglobin 30.3 pg (27-33); Mean Corpuscular Hgb Conc 32.9 g/dL (31-36); Mean Corpuscular Volume 92.1 fL (80-97); Mean Platelet Volume 8.1 fL (7.5-11.2); Platelet Count 360 10^3/uL (150-450); Red Blood Count 2.93 10^6/uL (3.63-4.92); Red Cell Distribution Width 16.9 % (12-17); White Blood Count 4.9 10^3/uL (3.8-11.8)
[2023-04-28 07:08] LABS: Creatinine, Serum 1.06 mg/dL (0.51-0.95); eGFR CKD-EPI 52.4 (>60)
[2023-04-28] MEDS: Cholecalciferol (VIT D3) 1,000 unit TAB PO SCH (08:21)
[2023-04-28] MEDS: CMCS:Anastrozole 1 mg TAB (NF) PO SCH (08:21)
[2023-04-28] MEDS: Amoxicillin/Clavul 875/125 TAB (Augmentin 875 tab) PO SCH ×2 (08:21→20:11)
[2023-04-28] MEDS ORDERED: Albuterol/Ipratropium NEB.SOL (2.5/0.5 MG) 3 ML NEB.SOLN INH SCH (13:00)
[2023-04-28] MEDS ORDERED: Albuterol/Ipratropium NEB.SOL (2.5/0.5 MG) 3 ML NEB.SOLN INH PRN (15:31)
[2023-04-28] MEDS: Enoxaparin 40 MG/0.4 ML SYR SUBCUT SCH (20:12)
[2023-04-28 20:36] LABS: Calcium 8.3 mg/dL (8.6-10.3); Creatinine, Serum 1.21 mg/dL (0.51-0.95); Potassium 4.6 mmol/L (3.5-5.0); eGFR CKD-EPI 44.7 (>60)
[2023-04-29 08:51] LABS: Rapid COVID-19 Molecular Undetected (Undetected)
[2023-04-29] MEDS: Amoxicillin/Clavul 875/125 TAB (Augmentin 875 tab) PO SCH ×2 (09:51→20:45)
[2023-04-29] MEDS: Cholecalciferol (VIT D3) 1,000 unit TAB PO SCH (09:51)
[2023-04-29] MEDS: CMCS:Anastrozole 1 mg TAB (NF) PO SCH (09:52)
[2023-04-29] MEDS ORDERED: Albuterol/Ipratropium NEB.SOL (2.5/0.5 MG) 3 ML NEB.SOLN ONE (09:59)
[2023-04-29] MEDS ORDERED: Albuterol/Ipratropium NEB.SOL (2.5/0.5 MG) 3 ML NEB.SOLN INH SCH (10:00)
[2023-04-29] MEDS: Albuterol/Ipratropium NEB.SOL (2.5/0.5 MG) 3 ML NEB.SOLN INH SCH ×3 (10:13→19:19)
[2023-04-29 14:54] LABS: ABS Eosinophils 0.1 10^3/uL (0.0-0.5); ABS Lymphocytes 0.9 10^3/uL (1.0-4.8); ABS Monocytes 0.3 10^3/uL (0.0-0.9); ABS Neutrophils 2.5 10^3/uL (1.5-7.6); ABS Nucleated RBC 0.01 10^3/ul; Eosinophil % 3.3 %; Hematocrit 27.1 % (35-45); Hemoglobin 8.8 g/dL (11.5-14.3); Lymphocyte % 23.7 %; Mean Corpuscular Hemoglobin 29.8 pg (27-33); Mean Corpuscular Hgb Conc 32.4 g/dL (31-36); Mean Platelet Volume 7.9 fL (7.5-11.2); Nucleated Red Blood Cells % 0.2 %/100WBC (0.0-0.8); Platelet Count 349 10^3/uL (150-450); Red Blood Count 2.95 10^6/uL (3.63-4.92); Red Cell Distribution Width 16.2 % (12-17); White Blood Count 3.9 10^3/uL (3.8-11.8)
[2023-04-29 14:57] LABS: Albumin 3.1 g/dL (3.2-5.2); Creatinine, Serum 1.13 mg/dL (0.51-0.95); Potassium 4.2 mmol/L (3.5-5.0); Total Bilirubin 0.2 mg/dL (0.2-1.0); Total Protein 6.1 g/dL (6.4-8.9); eGFR CKD-EPI 48.6 (>60)
[2023-04-29 15:18] LABS: PCO2 Arterial 38 mmHg (35-45); PO2 Arterial 86 mmHg (80-100)
[2023-04-29] MEDS: Enoxaparin 40 MG/0.4 ML SYR SUBCUT SCH (20:45)
[2023-04-30 08:19] LABS: Calcium 8.1 mg/dL (8.6-10.3); Creatinine, Serum 1.02 mg/dL (0.51-0.95); Potassium 4.2 mmol/L (3.5-5.0); eGFR CKD-EPI 54.9 (>60)
[2023-04-30] MEDS: Albuterol/Ipratropium NEB.SOL (2.5/0.5 MG) 3 ML NEB.SOLN INH SCH (08:32)
[2023-04-30 09:18] VITALS: BP 111/71
[2023-04-30] MEDS: Cholecalciferol (VIT D3) 1,000 unit TAB PO SCH (09:29)
[2023-04-30] MEDS: CMCS:Anastrozole 1 mg TAB (NF) PO SCH (09:29)
[2023-04-30] MEDS: Amoxicillin/Clavul 875/125 TAB (Augmentin 875 tab) PO SCH (09:30)
== END 2023-04-30 10:50 | DRG 871 ==
LOC: ED 20:26 → SUATTDRO 04-24 01:47 → EDHOLD 04-24 01:47 → ICU 04-24 11:07 → MED 04-25 16:37
PROVIDERS: ADMIT Student in an Organized Health Care Education/Training Program; ATTEND Hospitalist

== ENCOUNTER 2023-09-26 00:23 | Inpatient (IN) ==
[2023-09-26] MEDS ORDERED: Senna TAB 8.6 mg TAB PO PRN (00:32)
[2023-09-26] MEDS ORDERED: Polyethylene Glycol 3350 17 GM PACKET PO PRN (00:32)
[2023-09-26] MEDS ORDERED: Heparin 5000 UNITS/ML 1 mL VIAL IV SCH (02:00)
[2023-09-26 02:07] LABS: ABS Lymphocytes 0.6 10^3/uL (1.0-4.8); ABS Monocytes 0.2 10^3/uL (0.0-0.9); ABS Neutrophils 3.5 10^3/uL (1.5-7.6); ABS Nucleated RBC 0.01 10^3/ul; Hematocrit 27.1 % (35-45); Hemoglobin 8.7 g/dL (11.5-14.3); Lymphocyte % 14.6 %; Mean Corpuscular Hemoglobin 30.2 pg (27-33); Mean Corpuscular Hgb Conc 32.3 g/dL (31-36); Mean Corpuscular Volume 93.4 fL (80-97); Mean Platelet Volume 8.9 fL (7.5-11.2); Nucleated Red Blood Cells % 0.1 %/100WBC (0.0-0.8); Platelet Count 187 10^3/uL (150-450); Red Cell Distribution Width 15.4 % (12-17); White Blood Count 4.4 10^3/uL (3.8-11.8)
[2023-09-26] MEDS: Heparin DRIP 25,000 UNITS BAG 25,000 UNITS/250 ML BAG IV SCH (02:44)
[2023-09-26 02:49] LABS: Creatinine, Serum 1.16 mg/dL (0.51-0.95); eGFR CKD-EPI 47.1 (>60)
[2023-09-26] MEDS ORDERED: Dextrose 50% Syringe 50 ml 25 GM/50 ML SYRINGE IV PUSH PRN (02:58)
[2023-09-26 04:56] LABS: High Sensitivity Troponin 1 Hr 5260 pg/mL (<15)
[2023-09-26] MEDS: cefTRIAXone 1 gm/50 mL D5W 1 GM/50 ML BAG IV SCH (05:09)
[2023-09-26] MEDS: Albuterol/Ipratropium NEB.SOL (2.5/0.5 MG) 3 ML NEB.SOLN INH PRN (06:19)
[2023-09-26 06:37] LABS: High Sensitivity Troponin 3 Hr 4542 pg/mL (<15)
[2023-09-26 07:59] LABS: Calcium 8.5 mg/dL (8.6-10.3); Creatinine, Serum 1.2 mg/dL (0.51-0.95); Magnesium 2.3 mg/dL (1.9-2.7); Potassium 4.4 mmol/L (3.5-5.0); eGFR CKD-EPI 45.2 (>60)
[2023-09-26] MEDS ORDERED: Anastrozole 1 mg TAB (NF) PO SCH (09:00)
[2023-09-26] MEDS: Tiotropium Brom/Olodaterol MDI (ACUTE) INH SCH (10:19)
[2023-09-26] MEDS: Ferric Gluconate IV 250 MG in NS 0.9% 250 ml 200 ML IVPB SCH (11:45)
[2023-09-26] MEDS: Cholecalciferol (VIT D3) 1,000 unit TAB PO SCH (12:01)
[2023-09-27 05:32] LABS: ABS Lymphocytes 1.4 10^3/uL (1.0-4.8); ABS Monocytes 0.4 10^3/uL (0.0-0.9); ABS Neutrophils 3.1 10^3/uL (1.5-7.6); Eosinophil % 0.1 %; Hematocrit 26.4 % (35-45); Hemoglobin 8.8 g/dL (11.5-14.3); Lymphocyte % 28.1 %; Mean Corpuscular Hemoglobin 30.9 pg (27-33); Mean Corpuscular Hgb Conc 33.2 g/dL (31-36); Mean Corpuscular Volume 92.9 fL (80-97); Mean Platelet Volume 9.2 fL (7.5-11.2); Nucleated Red Blood Cells % 0.1 %/100WBC (0.0-0.8); Platelet Count 206 10^3/uL (150-450); Red Blood Count 2.84 10^6/uL (3.63-4.92); Red Cell Distribution Width 15.5 % (12-17); White Blood Count 4.9 10^3/uL (3.8-11.8)
[2023-09-27 06:43] LABS: Calcium 8.3 mg/dL (8.6-10.3); Creatinine, Serum 1.23 mg/dL (0.51-0.95); Potassium 4.3 mmol/L (3.5-5.0); eGFR CKD-EPI 43.9 (>60)
[2023-09-27 12:59] LABS: High Sensitivity Troponin 1 Hr 1670 pg/mL (<15)
[2023-09-28 06:21] LABS: ABS Lymphocytes 1.8 10^3/uL (1.0-4.8); ABS Monocytes 0.5 10^3/uL (0.0-0.9); ABS Neutrophils 3.7 10^3/uL (1.5-7.6); ABS Nucleated RBC 0.01 10^3/ul; Eosinophil % 0.1 %; Hematocrit 30.6 % (35-45); Hemoglobin 9.9 g/dL (11.5-14.3); Mean Corpuscular Hemoglobin 30.6 pg (27-33); Mean Corpuscular Hgb Conc 32.4 g/dL (31-36); Mean Corpuscular Volume 94.5 fL (80-97); Nucleated Red Blood Cells % 0.2 %/100WBC (0.0-0.8); Platelet Count 225 10^3/uL (150-450); Red Blood Count 3.24 10^6/uL (3.63-4.92); Red Cell Distribution Width 15.7 % (12-17); White Blood Count 6.1 10^3/uL (3.8-11.8)
[2023-09-28 06:45] LABS: Calcium 8.8 mg/dL (8.6-10.3); Creatinine, Serum 1.28 mg/dL (0.51-0.95); Magnesium 2.2 mg/dL (1.9-2.7); Potassium 4.2 mmol/L (3.5-5.0); eGFR CKD-EPI 41.8 (>60)
[2023-09-28] MEDS: Sulfur Hexaflouride MICROSPHR 25 MG VIAL IV ONE (14:02)
[2023-09-29 05:08] LABS: ABS Lymphocytes 1.8 10^3/uL (1.0-4.8); ABS Monocytes 0.6 10^3/uL (0.0-0.9); ABS Neutrophils 6.2 10^3/uL (1.5-7.6); ABS Nucleated RBC 0.01 10^3/ul; Eosinophil % 0.2 %; Hemoglobin 9.6 g/dL (11.5-14.3); Lymphocyte % 20.8 %; Mean Corpuscular Hgb Conc 32.9 g/dL (31-36); Mean Corpuscular Volume 94.1 fL (80-97); Mean Platelet Volume 8.8 fL (7.5-11.2); Nucleated Red Blood Cells % 0.2 %/100WBC (0.0-0.8); Platelet Count 246 10^3/uL (150-450); Red Blood Count 3.09 10^6/uL (3.63-4.92); Red Cell Distribution Width 15.6 % (12-17); White Blood Count 8.6 10^3/uL (3.8-11.8)
[2023-09-29] MEDS: Furosemide 20 mg/2 ml IV VIAL IV SLOW PU ONE (10:20)
[2023-09-29] MEDS: Mometasone 220 MCG MDI INH SCH (19:11)
[2023-09-30 05:48] LABS: ABS Eosinophils 0.2 10^3/uL (0.0-0.5); ABS Lymphocytes 1.9 10^3/uL (1.0-4.8); ABS Monocytes 0.3 10^3/uL (0.0-0.9); Eosinophil % 2.5 %; Hematocrit 30.8 % (35-45); Hemoglobin 9.8 g/dL (11.5-14.3); Lymphocyte % 25.9 %; Mean Corpuscular Hemoglobin 29.9 pg (27-33); Mean Corpuscular Hgb Conc 31.8 g/dL (31-36); Mean Platelet Volume 8.7 fL (7.5-11.2); Nucleated Red Blood Cells % 0.1 %/100WBC (0.0-0.8); Platelet Count 260 10^3/uL (150-450); Red Blood Count 3.27 10^6/uL (3.63-4.92); Red Cell Distribution Width 15.4 % (12-17); White Blood Count 7.4 10^3/uL (3.8-11.8)
[2023-09-30 06:00] LABS: Creatinine, Serum 1.38 mg/dL (0.51-0.95); eGFR CKD-EPI 38.2 (>60)
[2023-09-30 17:45] LABS: Calcium 8.5 mg/dL (8.6-10.3); Magnesium 1.9 mg/dL (1.9-2.7); Potassium 3.9 mmol/L (3.5-5.0)
[2023-10-01 06:39] LABS: ABS Eosinophils 0.3 10^3/uL (0.0-0.5); ABS Lymphocytes 2.1 10^3/uL (1.0-4.8); ABS Monocytes 0.5 10^3/uL (0.0-0.9); ABS Neutrophils 5.7 10^3/uL (1.5-7.6); ABS Nucleated RBC 0.01 10^3/ul; Eosinophil % 3.7 %; Hematocrit 32.7 % (35-45); Hemoglobin 10.5 g/dL (11.5-14.3); Lymphocyte % 24.3 %; Mean Corpuscular Hemoglobin 30.2 pg (27-33); Mean Corpuscular Hgb Conc 32.1 g/dL (31-36); Mean Platelet Volume 8.8 fL (7.5-11.2); Nucleated Red Blood Cells % 0.1 %/100WBC (0.0-0.8); Platelet Count 283 10^3/uL (150-450); Red Blood Count 3.48 10^6/uL (3.63-4.92); Red Cell Distribution Width 15.7 % (12-17); White Blood Count 8.7 10^3/uL (3.8-11.8)
[2023-10-01 15:15] VITALS: BP 95/55
[2023-10-01 15:26] LABS: Calcium 8.7 mg/dL (8.6-10.3); Creatinine, Serum 1.52 mg/dL (0.51-0.95); Potassium 4.5 mmol/L (3.5-5.0)
[2023-10-01 16:25] LABS: Calcium 8.7 mg/dL (8.6-10.3); Creatinine, Serum 1.51 mg/dL (0.51-0.95); Potassium 4.4 mmol/L (3.5-5.0); eGFR CKD-EPI 34.3 (>60)
== END 2023-10-01 17:22 | disposition home or self-care (01) | DRG 280 ==
LOC: MEDTELE → SUATTDRO 00:32
PROVIDERS: ADMIT Internal Medicine; ATTEND Internal Medicine